=== PATIENT | female | born 1940 | race Caucasian/White ===

== ENCOUNTER 2016-08-08 06:29 | Day surgery (SDC) | payer MEDICARE, BC ==
[2016-08-05 15:48] VITALS: BMI 33.6
[~2016-08-08 06:29] MED LIST: DEXAMETHASONE SOD PHOSPHATE 10 MG/ML 1 ML VIAL IV ONE; HEPARIN SODIUM,PORCINE 5,000 UNIT/ML 1 ML VIAL SQ ONE; LACTATED RINGERS 1,000 ML IV SCH; ONDANSETRON 4 MG/2 ML VIAL IVP ONE; ceFAZolin 2 GM in SODIUM CHLORIDE 0.9% 100 ML IVPB ONE
[2016-08-08] MEDS ORDERED: LIDOCAINE 1% 20 ML VIAL (10MG/ML) FOR IV START INTRADERMA ONE (07:08)
[2016-08-08 07:20] VITALS: RESP 16; TEMP 97.6
[2016-08-08] MEDS ORDERED: PROPOFOL 10 MG/ML 20 ML VIAL IV ONE (07:53)
[2016-08-08] MEDS ORDERED: fentaNYL (PF) 50 MCG/ML 2 ML AMP ONE (07:53)
[2016-08-08] MEDS ORDERED: MIDAZOLAM 2 MG/2 ML VIAL ONE (07:53)
[2016-08-08] MEDS ORDERED: ROCURONIUM BROMIDE 10 MG/ML 10 ML VIAL IV ONE (07:53)
[2016-08-08] MEDS ORDERED: GLYCOPYRROLATE 0.2 MG/ML 2 ML VIAL ONE (07:53)
[2016-08-08] MEDS ORDERED: NEOSTIGMINE 1 MG/ML 10 ML VIAL ONE (07:53)
[2016-08-08] MEDS ORDERED: LABETALOL 5 MG/ML VIAL MDV ONE (07:53)
[2016-08-08] MEDS ORDERED: BUPIVACAIN-EPI 0.25%-1:200,000 30 ML VIAL SQ ONE ×3 (08:13)
--- NOTE | 2016-08-08 09:41 | P.OP ---
Date of Procedure: 08/08/16 Preoperative Diagnosis: Symptomatic cholelithiasis Soft tissue mass left arm Obesity BMI 33.6 Dementia Postoperative Diagnosis: Same Procedure(s) Performed: Laparoscopic cholecystectomy Excision soft tissue mass left arm Implants: NA Anesthesia: SHANNAN, local Surgeon: Aviva Lloyd Pathology: other Condition: stable Disposition: PACU Indications for Procedure: 76 years old female presents with intermittent right upper quadrant pain. Ultrasound showed gallstones. She also has soft tissue mass in the left arm. Informed consent obtained and patient elected to undergo laparoscopic cholecystectomy possible open. The risks, benefits and potential complications including bleeding, infection, inadvertent bile duct injury and possibility of converting into open were explained. Patient is also undergoing excision of the left arm soft tissue mass. Her comorbid conditions include dementia, atrial fibrillation, obesity BMI 33.6 Operative Findings: Acute on chronic cholecystitis Lipomatous mass left arm measuring 2 x 2 cm Description of Procedure: The patient was brought to the operating room and placed in supine position with both arms out. General anesthesia with endotracheal intubation was performed as per anesthesia team. Chlorhexidine was used to prep the abdomen followed by application of sterile drapes. A timeout was performed to verify correct patient and correct procedure. Patient was confirmed to receive perioperative IV antibiotics , heparin 5000 units subcutaneous injection and bilateral SCDs were placed. A 5 mm skin incision was made below the left costal margin at the anterior axillary line. A Veress needle was inserted and pneumoperitoneum was established to a pressure of 15 mmHg. A 5 mm Optiview trocar was loaded on a 5 mm 30 laparoscope and the peritoneal cavity was entered under direct vision using the Optiview technique. Additional 5 mm trocar was placed in the supraumbilical location and two 5 mm trocars along the right subcostal margin. The left 5 mm trocar was upsized to 10mm. The patient was placed in reverse Trendelenburg with right side up. The fundus of the gallbladder was grasped with an atraumatic grasper and was retracted over the dome of the liver. The infundibulum was grasped with an atraumatic grasper and retracted towards the pelvis to expose the Calot's triangle. Lateral and medial peritoneal attachment of the gallbladder bladder was dissected. Circumferential dissection was carried out around the cystic artery and the cystic duct to obtain adequate length for clip application. All the surrounding fibrofatty tissue were removed. Critical view was obtained with cystic duct and cystic artery as the only two structures entering the gallbladder. Two clips were applied on the patient's side and one on the specimen side on the cystic duct first and the cystic artery. Endoshears were used to divide the structures. The gallbladder was taken off the liver bed using a L-hook. It was placed in an endocatch specimen bag and removed through the 10mm port. The gallbladder was passed off as a specimen. The abdominal cavity was inspected. The clips on the cystic duct and cystic artery stump were intact and no bleeding noted from the liver bed. All the trocar sites were examined and no evidence of bleeding. The 10mm port site was closed with two transfascial sutures of 0 Vicryl using a MMIS device. The pneumoperitoneum was evacuated and all the trocars were removed. Local anesthetic was infiltrated along the trocar sites and incisions were closed using 4-0 Monocryl followed by application of Dermabond skin glue. The sponge, instrument and needle count were correct x2. The left arm was prepped and draped in standard sterile fashion. Local anesthetic was infiltrated. A 2 cm skin incision was made along the natural skin crease. This was deepened through the subcutaneous tissue. A well- defined 2 x 2 cm lipomatous mass was excised. The cavity was checked for hemostasis. It measured 2 x 1 x 0.2 cm It was closed in 2 layers using interrupted sutures of 3-0 Vicryl and running sutures of 4-0 Monocryl. Dermabond skin glue was applied Patient was extubated and taken to post anesthesia care unit in stable condition.
[2016-08-08] MEDS ORDERED: KETOROLAC 30 MG/ML 1 ML VIAL IVP ONE (09:45)
[2016-08-08 11:13] VITALS: BP 146/70; PULSE 60
== END 2016-08-08 13:04 | disposition home or self-care (01) ==
LOC: OR 06:29
PROVIDERS: ATTEND Surgery
DX: K80.12 Calculus of gallbladder with acute and chronic cholecystitis without obstruction (principal); D17.22 Benign lipomatous neoplasm of skin and subcutaneous tissue of left arm; F03.90 Unspecified dementia, unspecified severity, without behavioral disturbance, psychotic disturbance, mood disturbance, and anxiety; R63.4 Abnormal weight loss; E66.9 Obesity, unspecified; Z68.33 Body mass index [BMI] 33.0-33.9, adult; G47.33 Obstructive sleep apnea (adult) (pediatric); I48.91 Unspecified atrial fibrillation; I12.9 Hypertensive chronic kidney disease with stage 1 through stage 4 chronic kidney disease, or unspecified chronic kidney disease; N18.1 Chronic kidney disease, stage 1; Z88.5 Allergy status to narcotic agent; Z95.0 Presence of cardiac pacemaker; Z79.01 Long term (current) use of anticoagulants; Z79.899 Other long term (current) drug therapy
CPT/HCPCS: 47562; 26111; 93005; 88304; J2250; J1644; J1100; J2710; J0690; J2405; J3010; J1885; J2704

== ENCOUNTER 2016-10-22 13:51 | Emergency (ER) | payer MEDICARE, BC ==
--- NOTE | 2016-10-22 16:21 | ED ---
General Adult HPI - General Chief complaint: Extremity Problem,Nontraumatic Stated complaint: Left foot bruising Time Seen by Provider: 10/22/16 15:57 Source: patient, family, RN notes reviewed Mode of arrival: wheelchair Limitations: no limitations - History of Present Illness Initial comments: Patient is a pleasant 76-year-old female presenting to the emergency Department with complaints of left foot bruising. Patient woke this morning and noticed that. Patient states that has slightly improved. Patient was wearing new shoes yesterday. Patient denies any other trauma. Patient denies any pain. Patient does take Xarelto for blood thinner for atrial fibrillation. Patient does occasionally have leg cramps. - Related Data Home Medications Medication Instructions Recorded Confirmed Furosemide [Lasix] 20 mg PO DAILY PRN 06/24/14 10/22/16 Acetaminophen [Tylenol Arthritis] 650 mg PO TID PRN 07/09/16 10/22/16 Donepezil [Aricept] 5 mg PO HS 07/09/16 10/22/16 Rivaroxaban [Xarelto] 20 mg PO HS 07/09/16 10/22/16 Allergies Allergy/AdvReac Type Severity Reaction Status Date / Time hydromorphone [From Dilaudid] AdvReac Severe Confusion Verified 10/22/16 16:14 Review of Systems ROS Statement: Those systems with pertinent positive or pertinent negative responses have been documented in the HPI. ROS Other: All systems not noted in ROS Statement are negative. Constitutional: Denies: fever Eyes: Denies: eye pain ENT: Denies: ear pain Respiratory: Denies: cough Cardiovascular: Denies: chest pain, palpitations Endocrine: Denies: fatigue Gastrointestinal: Denies: abdominal pain Genitourinary: Denies: dysuria Musculoskeletal: Denies: back pain Skin: Reports: other (Ecchymosis left foot) Neurological: Denies: weakness Past Medical History Past Medical History: Atrial Fibrillation, Memory Impairment, Osteoarthritis (OA ), Renal Disease, Sleep Apnea/CPAP/BIPAP Additional Past Medical History / Comment(s): MENINGIOMA BRAIN TUMOR , NO C-PAP , KIDNEY MASS, CHRONIC KIDNEY DISEASE STAGE 3., MEDTRONIC PACEMAKER., MASS LEFT ARM. History of Any Multi-Drug Resistant Organisms: None Reported Past Surgical History: Back Surgery, Cholecystectomy, Hysterectomy, Orthopedic Surgery, Pacemaker, Tubal Ligation Additional Past Surgical History / Comment(s): BACK SURGERY X2 , FOOT SURGERY X4 , TRIGGER THUMB, ARTHROSCOPY RIGHT KNEE, BLADDER SUSPENSION. Past Anesthesia/Blood Transfusion Reactions: No Reported Reaction Type of Cardiac Device: Permanent Pacemaker Device Placement Date:: 2008 Past Psychological History: Depression Smoking Status: Never smoker Past Alcohol Use History: None Reported Past Drug Use History: None Reported - Past Family History Mother Family Medical History: No Reported History General Exam Limitations: no limitations General appearance: alert, in no apparent distress Head exam: Present: atraumatic Eye exam: Present: normal appearance Neck exam: Present: normal inspection Respiratory exam: Present: normal lung sounds bilaterally Cardiovascular Exam: Present: regular rate, normal rhythm GI/Abdominal exam: Present: soft. Absent: tenderness Extremities exam: Present: other (Left foot mild ecchymosis of the distal foot proximal to the second through fourth toe. No tenderness. Distally the extremity is neurovascular intact. Cells pedis pulse 2/4.) Neurological exam: Present: alert. Absent: motor sensory deficit Psychiatric exam: Present: normal affect, normal mood Skin exam: Present: other (Left foot ecchymosis) Course Vital Signs 10/22/16 13:54 Temperature 97.5 F L Pulse Rate 88 Respiratory 20 Rate Blood Pressure 207/109 O2 Sat by Pulse 99 Oximetry - Reevaluation(s) Reevaluation #1: 10/22/16 16:13 Patient offered blood work for evaluation of leg cramps and dehydration. Patient refuses this 10/22/16 16:47 Repeat blood pressure 197/82. Patient does have a history of some mild hypertension which she does monitor. Patient requests discharge and is agreeable to close follow-up with her doctor and director broadcast. Disposition Clinical Impression: Superficial bruising of foot, Hypertension Disposition: HOME SELF-CARE Condition: Stable Instructions: Rivaroxaban (By mouth), Ecchymosis (ED), Hypertension (ED) Additional Instructions: Please follow-up with primary care physician in the next few days for recheck. Return for increased bruising, bruising other areas, any episodes of bleeding, increased leg cramps, worsening symptoms or other concerns. Referrals: Jeferson Jaquez MD [Primary Care Provider] - 1-2 days
[2016-10-22] MEDS: FUROSEMIDE 20 MG TAB PO STA (16:28)
[2016-10-22 16:51] VITALS: BP 197/82; PULSE 78; RESP 18; TEMP 97.6
== END 2016-10-22 16:56 | disposition home or self-care (01) ==
LOC: EC 13:51
DX: S90.32XA Contusion of left foot, initial encounter (principal); I10 Essential (primary) hypertension; I48.91 Unspecified atrial fibrillation; Z79.01 Long term (current) use of anticoagulants; Z79.899 Other long term (current) drug therapy; Z88.5 Allergy status to narcotic agent; Z98.890 Other specified postprocedural states; X58.XXXA Exposure to other specified factors, initial encounter
CPT/HCPCS: 99283

== ENCOUNTER → 2017-01-29 | Outpatient (CLI) | payer MEDICARE, BC ==
--- NOTE | 2017-01-29 11:34 | CT ---
EXAMINATION TYPE: CT brain wo con DATE OF EXAM: 01/29/2017 COMPARISON: 06/24/2014 INDICATION: Headaches, history of meningioma DLP: 1121 mGycm, Automated exposure control for dose reduction was used. CONTRAST: None CT of the brain is performed utilizing 3 mm thick sections through the posterior fossa and 3 mm thick sections through the remaining calvarium. Study is performed within 24 hours of arrival to the hosp ital. No abnormal hyperdensity is present to suggest an acute intracranial hemorrhage. There is a dural based calcification measuring 1.5 x 1.6 cm. This was present previously and appears stable. No significant vasogenic edema is evident adjacent to this suspected calcified meningioma. No acute infarcts are evident. Periventricular white matter hypodensity is present, likely on the bas is of chronic white matter ischemic changes. Ventricles and sulci are appropriate for the patient age. Paranasal sinuses and mastoid air cells within the [id number] are clear. IMPRESSIONS: 1. Right vertex calcified meningioma, stable from June 2014. 2. Chronic appearing white matter ischemic type changes, stable.
== END | disposition home or self-care (01) ==
LOC: RADCTMAIN 11:10
PROVIDERS: ATTEND Family Medicine
DX: D32.0 Benign neoplasm of cerebral meninges (principal); I67.82 Cerebral ischemia
CPT/HCPCS: 70450

== ENCOUNTER → 2018-11-17 | Outpatient (CLI) | payer MEDICARE, BC ==
--- NOTE | 2018-11-17 12:58 | CT ---
EXAMINATION TYPE: CT brain wo con DATE OF EXAM: 11/17/2018 COMPARISON: 01/29/2017 HISTORY: Frontal hematoma and headache post fall yesterday. CT DLP: [address] of the brain was performed. The ventricles, basal cisterns and sulci overlying the cerebral convexities demonstrate mild enlargem ent. There is no evidence for intracranial hemorrhage or sulcal effacement. There is decreased attenuation about the periventricular white matter and deep white matter of both c erebral hemispheres, compatible with chronic small vessel ischemia. Differential diagnosis does inclu de demyelination. No mass effects are seen.No midline shift. Stable calcified high right frontal meningioma. Osseous calvarium is intact. Frontal scalp hematoma noted. If symptoms persist consider MRI. IMPRESSION: 1. Age related atrophic and chronic small vessel ischemic change without acute intracranial process s een at this time.
== END | disposition home or self-care (01) ==
LOC: RADCTMAIN 12:27
PROVIDERS: ATTEND Internal Medicine
DX: G31.1 Senile degeneration of brain, not elsewhere classified (principal); I67.82 Cerebral ischemia
CPT/HCPCS: 70450

== ENCOUNTER → 2020-01-02 | Outpatient (CLI) | payer MEDICARE, BC ==
--- NOTE | 2020-01-02 16:55 | CT ---
EXAMINATION TYPE: CT ChestAbdPelvis wo con DATE OF EXAM: 01/02/2020 INDICATION: Patient poor historian COMPARISON: 10/08/2015 CT DLP: 1129 mGycm CONTRAST: Performed without Oral Contrast. No intravenous contrast TECHNIQUE: Axial images at 5 mm thick sections. Reconstructed images in the coronal plane. Delayed images through the kidneys. FINDINGS: CT CHEST: Portion of the thyroid visualized is normal. There is some thickening in the posterior left lung base present previously. This measures 1.1 cm in transverse dimension. Atelectasis and scarring could be within the differential. No enlarged mediastinal or hilar adenopathy is evident. The ascending aorta diameter at the level of the main pulmonary artery is 4.0 cm. The main pulmonary artery diameter at the bifurcation is 3.[address] ABDOMEN: Liver: Normal Spleen: Normal Pancreas: Normal Adrenal glands: The adrenal glands are normal. Gallbladder: Surgically absent Kidneys: Previous right renal mass appears resected. Tiny hyperdense nodule extending from the infer ior pole right kidney may be present measuring 0.9 cm. Additional workup is recommended. Series 3 reva ge 95 small cystlike area appears to be just superior to this measuring 1.0 cm No hydronephrosis is p resent. No renal stones are identified. Aorta: Vascular calcification is within the aorta. Inferior vena cava: Normal. CT PELVIS: Loops of bowel within the abdomen and pelvis are normal. The study is performed without oral cont rast limiting bowel evaluation. Appendix: Not identified. No suspicious dilated tubular structures or inflammatory changes are eviden t. Urinary bladder: Decompressed with some limited evaluation. Genitourinary structures: Uterus and ovaries are not identified. There is a hyperdense area measuring 0.6 cm to the left of the vaginal vault of uncertain etiology. Series 3 image 175. Osseous structures: No suspicious lytic or sclerotic lesions. IMPRESSIONS: 1. 1 cm slightly hyperdense area extending from the inferior pole right kidney. This is away from the area of the resected mass from prior study. Additional evaluation recommended. Neoplasm is not exclu ded. 2. Stable thickening in the posterior left lung base.
== END | disposition home or self-care (01) ==
LOC: RADCTMAIN 15:48
PROVIDERS: ATTEND Family Medicine
DX: R93.421 Abnormal radiologic findings on diagnostic imaging of right kidney (principal); J98.4 Other disorders of lung
CPT/HCPCS: 71250; 74176

== ENCOUNTER → 2020-01-17 | Outpatient (CLI) | payer MEDICARE, BC ==
[2020-01-17 14:35] LABS: HCT 41.6 % (34.0-46.0); Hypochromasia Moderate; MCHC 31.3 g/dL (31.0-37.0); MCV 95.8 fL (80.0-100.0); Mean Platelet Volume 10.1; Platelet Count 146 k/uL (150-450); RBC 4.35 m/uL (3.80-5.40); RDW 15.5 % (11.5-15.5); WBC 4.5 k/uL (3.8-10.6)
[2020-01-17 14:53] LABS: Potassium 4.6 mmol/L (3.5-5.1)
== END | disposition home or self-care (01) ==
LOC: LABPAT 14:00
PROVIDERS: ATTEND Internal Medicine Interventional Cardiology
DX: Z01.818 Encounter for other preprocedural examination (principal); I10 Essential (primary) hypertension; I48.20 Chronic atrial fibrillation, unspecified; Z79.899 Other long term (current) drug therapy
CPT/HCPCS: 36415; 80051; 82565; 82947; 84520; 85027

== ENCOUNTER → 2020-01-23 | Outpatient (CLI) | payer MEDICARE, BC ==
--- NOTE | 2020-01-23 15:30 | US ---
EXAMINATION TYPE: US kidneys/renal and bladder DATE OF EXAM: 01/23/2020 COMPARISON: CT CLINICAL HISTORY: N19 Unspecified kidney failure. EXAM MEASUREMENTS: Right Kidney: 8.4 x 3.5 x 3.5 cm Left Kidney: 10.2 x 4.0 x 4.7 cm History of right renal mass resection. Right Kidney: lower pole cyst measures 0.7 x 0.8 x 0.7 cm. Left Kidney: No hydronephrosis or masses seen Bladder: not well distended Bilateral Jets seen: no There is no evidence for hydronephrosis at this point in time. No nephrolithiasis is seen. No maribell s are identified. The urinary bladder is anechoic. IMPRESSION: Simple cyst lower pole right kidney.
== END | disposition home or self-care (01) ==
LOC: RADUSWWP 14:58
PROVIDERS: ATTEND Family Medicine
DX: N28.1 Cyst of kidney, acquired (principal); N19 Unspecified kidney failure
CPT/HCPCS: 76770

== ENCOUNTER 2020-02-02 15:38 | Inpatient (IN) | payer MEDICARE, BC ==
[2020-02-02 15:58] LABS: Glucose,Whole Blood 95 mg/dL (75-99)
--- NOTE | 2020-02-02 16:23 | ED ---
Altered Mental Status HPI - General Chief Complaint: Altered Mental Status Stated Complaint: alt mental status Time Seen by Provider: 02/02/20 15:48 Source: patient, family, EMS Mode of arrival: EMS Limitations: altered mental status - History of Present Illness Initial Comments: Patient is a 79-year-old female with history of dementia presenting to the emergency department with altered mental status . is also present in the room to answer any additional questions. states the patient has been getting increasingly agitated over the last few months but no physical attacks. states the patient is refusing to use. She will only have small amounts. Patient is emotional while she was evaluated and states that "you can't tell them anything". Patient is alert to self but not time or place. also reports the patient had a syncopal episode today this initially started with a burn to left hand then went to the right hand and then she "passed out" for less than 5 minutes. Patient sees a urologist because she had a mass removed from the right kidney. states the primary care has been aware of the hematuria. - Related Data Home Medications Medication Instructions Recorded Confirmed Donepezil [Aricept] 10 mg PO DAILY 02/02/20 02/02/20 Ferrous Sulfate [Feosol] 325 mg PO HS 02/02/20 02/02/20 Mirtazapine 15 mg PO HS 02/02/20 02/02/20 Allergies Allergy/AdvReac Type Severity Reaction Status Date / Time hydromorphone [From Dilaudid] AdvReac Severe Confusion Verified 02/02/20 18:00 Review of Systems ROS Statement: Those systems with pertinent positive or pertinent negative responses have been documented in the HPI. ROS Other: All systems not noted in ROS Statement are negative. Past Medical History Past Medical History: Atrial Fibrillation, Memory Impairment, Osteoarthritis (OA), Renal Disease, Sleep Apnea/CPAP/BIPAP Additional Past Medical History / Comment(s): MENINGIOMA BRAIN TUMOR ,KIDNEY MASS, CHRONIC KIDNEY DISEASE STAGE 3., MEDTRONIC PACEMAKER., MASS LEFT ARM. History of Any Multi-Drug Resistant Organisms: None Reported Past Surgical History: Back Surgery, Cholecystectomy, Hysterectomy, Orthopedic Surgery, Pacemaker, Tubal Ligation Additional Past Surgical History / Comment(s): BACK SURGERY X2 , FOOT SURGERY X4, TRIGGER THUMB, ARTHROSCOPY RIGHT KNEE, BLADDER SUSPENSION. Past Anesthesia/Blood Transfusion Reactions: No Reported Reaction Type of Cardiac Device: Permanent Pacemaker Device Placement Date:: 2008 Past Psychological History: Depression Smoking Status: Never smoker Past Alcohol Use History: None Reported Past Drug Use History: None Reported - Past Family History Mother Family Medical History: No Reported History General Exam Limitations: altered mental status General appearance: alert, in no apparent distress Head exam: Present: atraumatic, normocephalic, normal inspection Eye exam: Present: normal appearance, PERRL, EOMI Pupils: Present: normal accommodation ENT exam: Present: normal exam, normal oropharynx, mucous membranes dry, TM's normal bilaterally, normal external ear exam Neck exam: Present: normal inspection, full ROM. Absent: tenderness Respiratory exam: Present: normal lung sounds bilaterally. Absent: respiratory distress, wheezes Cardiovascular Exam: Present: regular rate, normal rhythm, normal heart sounds GI/Abdominal exam: Present: soft. Absent: distended, tenderness, guarding Extremities exam: Present: normal inspection, full ROM. Absent: tenderness Back exam: Present: normal inspection, full ROM. Absent: tenderness Neurological exam: Present: alert Psychiatric exam: Present: normal affect, other (Patient crying, emotional.) Skin exam: Present: warm, dry, intact, normal color Course Vital Signs 02/02/20 02/02/20 02/02/20 15:53 17:42 18:52 Temperature 98 F Pulse Rate 65 62 65 Respiratory 18 18 18 Rate Blood Pressure 141/86 116/68 136/82 O2 Sat by Pulse 97 98 Oximetry 02/02/20 19:11 Temperature Pulse Rate 63 Respiratory 19 Rate Blood Pressure 123/83 O2 Sat by Pulse 93 L Oximetry Medical Decision Making - Medical Decision Making Patient is 79-year-old female with history of dementia presenting to the emergency department with a chief complaint of altered mental status. On exam patient has dry mucous membranes. She is alert to self but not time or place. CT of the brain is negative for acute processes. Chest x-ray is unremarkable. Elevated BUN/creatinine most like secondary to dehydration. UA shows +1 ketones. There is blood and red blood cells also noted. The hematuria was also known by the primary care and has been there for at least a month. Patient also appears to have a urinary tract infection with elevated white blood cells and leukocyte esterase. Negative nitrates. Patient started on Rocephin. Blood culture and lactate pending. Patient will be admitted for further medical management. Case discussed with Dr. Otoole. Data physician is - Lab Data Result diagrams: 02/02/20 17:04 02/02/20 17:04 Lab Results 02/02/20 02/02/20 02/02/20 Range/Units 15:56 17:04 17:04 WBC 6.7 (3.8-10.6) k/uL RBC 4.97 (3.80-5.40) m/uL Hgb 14.4 (11.4-16.0) gm/dL Hct 46.9 H (34.0-46.0) % MCV 94.2 (80.0-100.0) fL MCH 29.0 (25.0-35.0) pg MCHC 30.8 L (31.0-37.0) g/dL RDW 15.6 H (11.5-15.5) % Plt Count 156 (150-450) k/uL Neutrophils % 85 % Lymphocytes % 8 % Monocytes % 5 % Eosinophils % 2 % Basophils % 1 % Neutrophils # 5.6 (1.3-7.7) k/uL Lymphocytes # 0.6 L (1.0-4.8) k/uL Monocytes # 0.3 (0-1.0) k/uL Eosinophils # 0.1 (0-0.7) k/uL Basophils # 0.0 (0-0.2) k/uL PT 12.0 (9.0-12.0) sec INR 1.2 H (<1.2) APTT 23.5 (22.0-30.0) sec Sodium (137-145) mmol/L Potassium (3.5-5.1) mmol/L Chloride (98-107) mmol/L Carbon Dioxide (22-30) mmol/L Anion Gap mmol/L BUN (7-17) mg/dL Creatinine (0.52-1.04) mg/dL Est GFR (CKD-EPI)AfAm (>60 ml/min/1.73 sqM) Est GFR (CKD-EPI)NonAf (>60 ml/min/1.73 sqM) Glucose (74-99) mg/dL POC Glucose (mg/dL) 95 (75-99) mg/dL POC Glu Liquefaction Supervisor ID Linda Shetty Calcium (8.4-10.2) mg/dL Total Bilirubin (0.2-1.3) mg/dL AST (14-36) U/L ALT (4-34) U/L Alkaline Phosphatase (38-126) U/L Troponin I (0.000-0.034) ng/mL Total Protein (6.3-8.2) g/dL Albumin (3.5-5.0) g/dL Urine Color Urine Appearance (Clear) Urine pH (5.0-8.0) Ur Specific [place] (1.001-1.035) Urine Protein (Negative) Urine Glucose (UA) (Negative) Urine Ketones (Negative) Urine Blood (Negative) Urine Nitrite (Negative) Urine Bilirubin (Negative) Urine Urobilinogen (<2.0) mg/dL Ur Leukocyte Esterase (Negative) Urine RBC (0-5) /hpf Urine WBC (0-5) /hpf Urine WBC Clumps (None) /hpf Ur Squamous Epith Cells (0-4) /hpf Amorphous Sediment (None) /hpf Urine Bacteria (None) /hpf Hyaline Casts (0-2) /lpf Urine Mucus (None) /hpf Urine Opiates Screen (NotDetected) Ur Oxycodone Screen (NotDetected) Urine Methadone Screen (NotDetected) Ur Propoxyphene Screen (NotDetected) Ur Barbiturates Screen (NotDetected) U Tricyclic Antidepress (NotDetected) Ur Phencyclidine Scrn (NotDetected) Ur Amphetamines Screen (NotDetected) U Methamphetamines Scrn (NotDetected) U Benzodiazepines Scrn (NotDetected) Urine Cocaine Screen (NotDetected) U Marijuana (THC) Screen (NotDetected) 02/02/20 02/02/20 02/02/20 Range/Units 17:04 17:04 18:31 WBC (3.8-10.6) k/uL RBC (3.80-5.40) m/uL Hgb (11.4-16.0) gm/dL Hct (34.0-46.0) % MCV (80.0-100.0) fL MCH (25.0-35.0) pg MCHC (31.0-37.0) g/dL RDW (11.5-15.5) % Plt Count (150-450) k/uL Neutrophils % % Lymphocytes % % Monocytes % % Eosinophils % % Basophils % % Neutrophils # (1.3-7.7) k/uL Lymphocytes # (1.0-4.8) k/uL Monocytes # (0-1.0) k/uL Eosinophils # (0-0.7) k/uL Basophils # (0-0.2) k/uL PT (9.0-12.0) sec INR (<1.2) APTT (22.0-30.0) sec Sodium 138 (137-145) mmol/L Potassium 4.0 (3.5-5.1) mmol/L Chloride 105 (98-107) mmol/L Carbon Dioxide 24 (22-30) mmol/L Anion Gap 9 mmol/L BUN 25 H (7-17) mg/dL Creatinine 1.61 H (0.52-1.04) mg/dL Est GFR (CKD-EPI)AfAm 35 (>60 ml/min/1.73 sqM) Est GFR (CKD-EPI)NonAf 30 (>60 ml/min/1.73 sqM) Glucose 136 H (74-99) mg/dL POC Glucose (mg/dL) (75-99) mg/dL POC Glu Liquefaction Supervisor ID Calcium 9.5 (8.4-10.2) mg/dL Total Bilirubin 1.4 H (0.2-1.3) mg/dL AST 41 H (14-36) U/L ALT 16 (4-34) U/L Alkaline Phosphatase 136 H (38-126) U/L Troponin I 0.013 (0.000-0.034) ng/mL Total Protein 6.9 (6.3-8.2) g/dL Albumin 4.0 (3.5-5.0) g/dL Urine Color Yellow Urine Appearance Turbid H (Clear) Urine pH 5.5 (5.0-8.0) Ur Specific [place] 1.022 (1.001-1.035) Urine Protein 1+ H (Negative) Urine Glucose (UA) Negative (Negative) Urine Ketones 1+ H (Negative) Urine Blood Moderate H (Negative) Urine Nitrite Negative (Negative) Urine Bilirubin 1+ H (Negative) Urine Urobilinogen 3.0 (<2.0) mg/dL Ur Leukocyte Esterase Large H (Negative) Urine RBC 86 H (0-5) /hpf Urine WBC 48 H (0-5) /hpf Urine WBC Clumps Many H (None) /hpf Ur Squamous Epith Cells 8 H (0-4) /hpf Amorphous Sediment Rare H (None) /hpf Urine Bacteria Many H (None) /hpf Hyaline Casts 34 H (0-2) /lpf Urine Mucus Many H (None) /hpf Urine Opiates Screen Not Detected (NotDetected) Ur Oxycodone Screen Not Detected (NotDetected) Urine Methadone Screen Not Detected (NotDetected) Ur Propoxyphene Screen Not Detected (NotDetected) Ur Barbiturates Screen Not Detected (NotDetected) U Tricyclic Antidepress Not Detected (NotDetected) Ur Phencyclidine Scrn Not Detected (NotDetected) Ur Amphetamines Screen Not Detected (NotDetected) U Methamphetamines Scrn Not Detected (NotDetected) U Benzodiazepines Scrn Not Detected (NotDetected) Urine Cocaine Screen Not Detected (NotDetected) U Marijuana (THC) Screen Not Detected (NotDetected) Disposition Clinical Impression: Urinary tract infection, Syncope Disposition: ADMITTED IP TO THIS HOSP Condition: Fair Instructions (If sedation given, give patient instructions): Altered Mental Status (ED) Additional Instructions: Patient will be admitted Is patient prescribed a controlled substance at d/c from ED?: No Referrals: Jeferson Jaquez MD [Primary Care Provider] - 1-2 days Time of Disposition: 20:02
--- NOTE | 2020-02-02 17:21 | CT ---
EXAMINATION TYPE: CT brain cspine wo con DATE OF EXAM: 02/02/2020 COMPARISON: 11/17/2018 HISTORY: AMS. Pt reportedly passed out. CT DLP: 1362.7 mGycm Automated exposure control for dose reduction was used. TECHNIQUE: CT scan of the head and cervical spine are performed without contrast. FINDINGS: There is no acute intracranial hemorrhage, mass, mass effect effect, or midline shift roc ntified. No definite new attenuation defect. The diffuse bilateral centrum semiovale and lemus radia ta nonspecific low attenuation is similar in appearance when compared to the prior study. The previou sly seen 1.5 cm diameter calcified meningioma high over the right convexity is unchanged. The ventric les and sulci are within normal limits in size. The globes are intact and the visualized sinuses are clear. Cervical spine is visualized in its entirety from C1 through upper thoracic levels and demonstrates s atisfactory alignment without evidence of acute fracture or dislocation. Prevertebral soft tissue ap pears within normal limits. The C1-C2 articulation is unremarkable. IMPRESSION: 1. No acute fracture or dislocation evident in the cervical spine. 2. No skull fracture or definite acute intracranial process.
[2020-02-02 17:28] LABS: Basophils % (A) 1 %; Eosinophils # (A) 0.1 k/uL (0-0.7); Eosinophils % (A) 2 %; HCT 46.9 % (34.0-46.0); HGB 14.4 gm/dL (11.4-16.0); Lymphocytes # (A) 0.6 k/uL (1.0-4.8); Lymphocytes % (A) 8 %; MCHC 30.8 g/dL (31.0-37.0); MCV 94.2 fL (80.0-100.0); Mean Platelet Volume 10.4; Monocytes # (A) 0.3 k/uL (0-1.0); Monocytes % (A) 5 %; Neutrophils # (A) 5.6 k/uL (1.3-7.7); Neutrophils % (A) 85 %; Platelet Count 156 k/uL (150-450); RBC 4.97 m/uL (3.80-5.40); RDW 15.6 % (11.5-15.5); WBC 6.7 k/uL (3.8-10.6)
--- NOTE | 2020-02-02 17:29 | XR ---
EXAMINATION: XR chest 2V DATE AND TIME: 02/02/2020 5:05 PM CLINICAL INDICATION: PHH; altered mental status TECHNIQUE: Departmental protocol COMPARISON: 06/24/2014 FINDINGS: Cardiac pacemaker and EKG leads noted. The lungs are clear. The pleural spaces are negative. The cardiac silhouette is mild-moderately enlarged, unchanged. Tortuous thoracic aorta redemonstrated , similar in appearance. The skeletal structures and soft tissues are negative for acute findings. IMPRESSION: No definite acute radiographic process.
[2020-02-02 17:35] LABS: Calcium 9.5 mg/dL (8.4-10.2); Total Bilirubin 1.4 mg/dL (0.2-1.3); Total Protein 6.9 g/dL (6.3-8.2)
[2020-02-02 17:40] LABS: INR 1.2 (<1.2); Partial Thromboplastin Time 23.5 sec (22.0-30.0)
[2020-02-02] MEDS ORDERED: SODIUM CHLORIDE 0.9% 1,000 ML IV STA (18:25)
[2020-02-02 19:01] LABS: Amorphous Sediment,Urine Rare /hpf; Appearance,Urine Turbid (Clear); Bacteria,Urine Many /hpf; Bilirubin,Urine 1+ (Negative); Blood,Urine Moderate (Negative); Color,Urine Yellow; Glucose,Urine (UA) Negative (Negative); Hyaline Casts,Urine 34 /lpf (0-2); Ketones,Urine 1+ (Negative); Leukocyte Esterase,Urine Large (Negative); Mucus,Urine Many /hpf; Nitrite,Urine Negative (Negative); PH, Urine 5.5 (5.0-8.0); Protein,Urine 1+ (Negative); RBC,Urine 86 /hpf (0-5); Specific Gravity,Urine 1.022 (1.001-1.035); Squamous Epithelial Cell,Urine 8 /hpf (0-4); WBC,Urine 48 /hpf (0-5)
[2020-02-02 19:14] LABS: Amphetamine Screen,Urine Not Detected (NotDetected); Barbiturate Screen,Urine Not Detected (NotDetected); Benzodiazepines Screen,Urine Not Detected (NotDetected); Cocaine Screen,Urine Not Detected (NotDetected); Methadone Screen, Urine Not Detected (NotDetected); Opiate Screen,Urine Not Detected (NotDetected); Oxycodone Screen, Urine Not Detected (NotDetected); Phencyclidine Screen,Urine Not Detected (NotDetected); Tricyclic Antidepressant,Urine Not Detected (NotDetected); Urn Cannabinoid Scrn Not Detected (NotDetected)
[2020-02-02] MEDS ORDERED: cefTRIAXone IN SWFI 1,000 MG/10 ML SYRINGE IVP STA (19:48)
[2020-02-02] MEDS ORDERED: ONDANSETRON 4 MG/2 ML VIAL IVP PRN (19:50)
[2020-02-02] MEDS ORDERED: LORazepam 2 MG/ML INJ IV PRN (19:50)
[2020-02-02] MEDS ORDERED: NALOXONE 0.4 MG/ML 1 ML VIAL IV PRN (19:50)
[2020-02-02] MEDS ORDERED: ACETAMINOPHEN TAB 325 MG TAB PO PRN (19:50)
[2020-02-02] MEDS: SODIUM CHLORIDE 0.9% 1,000 ML IV SCH (21:18)
[2020-02-02] MEDS: HEPARIN SODIUM,PORCINE 5,000 UNIT/ML 1 ML VIAL SQ SCH (23:55)
--- NOTE | 2020-02-03 01:37 | P.HPIM ---
History of Present Illness H&P Date: 02/02/20 Chief Complaint: syncope 79 year old female with history of dementia , afib (xarelto on hold) patient comes in with her family , after experiencing a syncopal episode. she wa s at her baseline of health, and just after lunch while she was going to her room using her walker, she had a syncopal episode. no injuries. as her son was preparing the bed, she passed our on her walker seat. she was not responding but breathing normally for less than a minute and then regained consciousness, she does not recall these events. she denies any injuries or similar episodes, no changes in her meds. denies any associated chest pain , SOB, sweating, dizziness, lightheadedness, nausea or vomiting. she currently feels fine. she also reports dark urine and frequent urination that has going on for about a month. again no fever, no back pain no nausea or vomiting. she reports upper abd discomfort that comes and goes, usually worse with big meals. therefore, she had poor PO intake for the past few weeks. she is not aware of any blood BM, keith , or pale stool in the ED, she was found to have RENE, and UTI. admitted for further treatment and monitoring Review of Systems Pertinent positives as noted in HPI. All other systems were reviewed and are negative Past Medical History Past Medical History: Atrial Fibrillation, Memory Impairment, Osteoarthritis (OA), Renal Disease, Sleep Apnea/CPAP/BIPAP Additional Past Medical History / Comment(s): MENINGIOMA BRAIN TUMOR ,KIDNEY MASS, CHRONIC KIDNEY DISEASE STAGE 3., [employer] PACEMAKER., MASS LEFT ARM. History of Any Multi-Drug Resistant Organisms: None Reported Past Surgical History: Back Surgery, Cholecystectomy, Hysterectomy, Orthopedic Surgery, Pacemaker, Tubal Ligation Additional Past Surgical History / Comment(s): BACK SURGERY X2 , FOOT SURGERY X4, TRIGGER THUMB, ARTHROSCOPY RIGHT KNEE, BLADDER SUSPENSION. Past Anesthesia/Blood Transfusion Reactions: No Reported Reaction Type of Cardiac Device: Permanent Pacemaker Device Placement Date:: 01/23/2020 Past Psychological History: Depression Smoking Status: Never smoker Past Alcohol Use History: None Reported Past Drug Use History: None Reported - Past Family History Mother Family Medical History: No Reported History Medications and Allergies Home Medications Medication Instructions Recorded Confirmed Type Donepezil [Aricept] 10 mg PO DAILY 02/02/20 02/02/20 History Ferrous Sulfate [Feosol] 325 mg PO HS 02/02/20 02/02/20 History Mirtazapine 15 mg PO HS 02/02/20 02/02/20 History Allergies Allergy/AdvReac Type Severity Reaction Status Date / Time hydromorphone [From Dilaudid] AdvReac Severe Confusion Verified 02/02/20 18:00 Physical Exam Vitals: Vital Signs Temp Pulse Resp BP Pulse Ox 02/02/20 21:20 98.9 F 60 17 135/74 96 02/02/20 19:11 63 19 123/83 93 L 02/02/20 18:52 65 18 136/82 98 02/02/20 17:42 62 18 116/68 97 02/02/20 15:53 98 F 65 18 141/86 Intake and Output 02/02/20 02/02/20 02/02/20 06:59 14:59 22:59 Other: Weight 65.5 kg Constitutional: No acute distress, conversant, pleasant Eyes: Anicteric sclerae, moist conjunctiva, Pupils equal round reactive to light ENMT: NC/AT Oropharynx clear, no erythema, or exudates Neck: Supple, FROM, no masses, or JVD No carotid bruits No thyromegaly Lungs: Clear to auscultation Clear to percussion Normal respiratory effort, no accessory muscle use Cardiovascular: Heart regular in rate and rhythm, No murmurs, gallops, or rubs No peripheral edema Abdominal: Soft Nontender, no guarding, rebound or rigidity Abdomen moving with respiration Normoactive bowel sounds No hepatomegaly, No splenomegaly No palpable mass No abdominal wall hernia noted Skin: Normal temperature, tone, texture, turgor No induration No subcutaneous nodules No rash, lesions No ulcers Extremities: No digital cyanosis No clubbing Pedal pulses intact and symmetrical Radial pulses intact and symmetrical No calf tenderness Psychiatric: Alert and oriented to person, only Appropriate affect poor judgement Neuro Muscles Strength 4/5 in all 4 extremities Sensation to light touch grossly present throughout Cranial nerves II-XII grossly intact No focal sensory deficits Lymphatics: no palpable cervical or supraclavicular , or inguinal lymph nodes Results CBC & Chem 7: 02/02/20 17:04 02/02/20 17:04 Labs: Abnormal Lab Results - Last 24 Hours (Table) 02/02/20 02/02/20 02/02/20 Range/Units 17:04 17:04 17:04 Hct 46.9 H (34.0-46.0) % MCHC 30.8 L (31.0-37.0) g/dL RDW 15.6 H (11.5-15.5) % Lymphocytes # 0.6 L (1.0-4.8) k/uL INR 1.2 H (<1.2) BUN 25 H (7-17) mg/dL Creatinine 1.61 H (0.52-1.04) mg/dL Glucose 136 H (74-99) mg/dL Total Bilirubin 1.4 H (0.2-1.3) mg/dL AST 41 H (14-36) U/L Alkaline Phosphatase 136 H (38-126) U/L Urine Appearance (Clear) Urine Protein (Negative) Urine Ketones (Negative) Urine Blood (Negative) Urine Bilirubin (Negative) Ur Leukocyte Esterase (Negative) Urine RBC (0-5) /hpf Urine WBC (0-5) /hpf Urine WBC Clumps (None) /hpf Ur Squamous Epith Cells (0-4) /hpf Amorphous Sediment (None) /hpf Urine Bacteria (None) /hpf Hyaline Casts (0-2) /lpf Urine Mucus (None) /hpf 02/02/20 Range/Units 18:31 Hct (34.0-46.0) % MCHC (31.0-37.0) g/dL RDW (11.5-15.5) % Lymphocytes # (1.0-4.8) k/uL INR (<1.2) BUN (7-17) mg/dL Creatinine (0.52-1.04) mg/dL Glucose (74-99) mg/dL Total Bilirubin (0.2-1.3) mg/dL AST (14-36) U/L Alkaline Phosphatase (38-126) U/L Urine Appearance Turbid H (Clear) Urine Protein 1+ H (Negative) Urine Ketones 1+ H (Negative) Urine Blood Moderate H (Negative) Urine Bilirubin 1+ H (Negative) Ur Leukocyte Esterase Large H (Negative) Urine RBC 86 H (0-5) /hpf Urine WBC 48 H (0-5) /hpf Urine WBC Clumps Many H (None) /hpf Ur Squamous Epith Cells 8 H (0-4) /hpf Amorphous Sediment Rare H (None) /hpf Urine Bacteria Many H (None) /hpf Hyaline Casts 34 H (0-2) /lpf Urine Mucus Many H (None) /hpf Microbiology - Last 24 Hours (Table) 02/02/20 18:31 Urine Culture - Preliminary Urine,Voided Thrombosis Risk Factor Assmnt - Choose All That Apply Each Risk Factor Represents 3 Points: Age 75 years or older Thrombosis Risk Factor Assessment Total Risk Factor Score: 3 Thrombosis Risk Factor Assessment Level: Moderate Risk Assessment and Plan Assessment: syncope , most likely 2/2 dehydration with vasovagal attack, rule out cardiac causes UTI RENE, prerenal ATN elevated liver enzymes, rule out gall stones dementia afib , xarelto on hold per her PCP for bleeding workup, patient hemoglobin is wnl, however patient dehydrated plan IVF hydration follow up cultures monitor urine output IV rocephine check orthostatic vitals youth nutritional monitor PPI liver US follow up labs in AM CODE STATUS:no code DVT prophylaxis: heparn sc tid Discussed with: Patient, ER, RN Anticipated length of stay > than [address]: home A total of 75 minutes was spent on the care of this complex patient more than 50% of the time was spent in counseling and care coordination.
--- NOTE | 2020-02-03 02:07 | P.HPADDEND ---
H&P Addendum H&P Addendum Date: 02/02/20 Advanced Care Planning Active diagnoses: syncope, UTI, RENE Background: The patient was admitted for treatment of syncope, dehydration , rene , UTI Discussion: Person(s) present and participating in discussion: The patient, myself, and patient son Summary: The patient does not want CPR or Intubation. She would allow for BIPAP if she needed it. Agreed for treatment with IV fluids, antibiotics, steroids, and nebs. She agrees to all care that would maximize comfort. In the event that she was not able to make her own medical decisions she has elected her Son. to make decisions. patient is hoping that she can go home as soon as possible , she does not want to consider placement at [facility]. Time spent: Total time spent face to face in education and discussion directly related to advanced care plannin minutes
--- NOTE | 2020-02-03 08:32 | US ---
EXAMINATION TYPE: US liver DATE OF EXAM: 02/03/2020 COMPARISON: CT abdomen pelvis 01/02/2020 CLINICAL HISTORY: Concern for gall stones, or blockage to CBD. Patient has dementia and unable to ans wer questions properly, no pain as of now. History of cholecystectomy. EXAM MEASUREMENTS: Liver Length: 14.8cm Gallbladder Wall: Surgically absent CBD: 0.5cm Right Kidney: 8.2 x 4.0 x 3.4cm patient with dementia, could not follow instructions, bowel gas limits exam. Pancreas: Not visualized. Liver: Left lobe not visualized. Intercostal imaging of the right lobe was limited however visualize d portions are normal. Gallbladder: Surgically absent. Telemedicine Physician reports no evidence of sonographic Saldivar sign. CBD: Normal. No extrahepatic or visualized intrahepatic biliary ductal dilatation. Right Kidney: Partially obscured, with no hydronephrosis. IMPRESSION: 1. Limited examination due to overlying bowel gas. 2. No extrahepatic or intrahepatic biliary ductal dilatation seen status post cholecystectomy.
[2020-02-03 08:37] LABS: Basophils % (A) 1 %; Eosinophils # (A) 0.1 k/uL (0-0.7); Eosinophils % (A) 3 %; HCT 41.2 % (34.0-46.0); HGB 12.7 gm/dL (11.4-16.0); Lymphocytes # (A) 0.9 k/uL (1.0-4.8); Lymphocytes % (A) 25 %; MCH 28.9 pg (25.0-35.0); MCHC 30.7 g/dL (31.0-37.0); MCV 94.2 fL (80.0-100.0); Mean Platelet Volume 10.1; Monocytes # (A) 0.2 k/uL (0-1.0); Monocytes % (A) 6 %; Neutrophils # (A) 2.2 k/uL (1.3-7.7); Neutrophils % (A) 63 %; Platelet Count 125 k/uL (150-450); RBC 4.38 m/uL (3.80-5.40); RDW 15.7 % (11.5-15.5); WBC 3.4 k/uL (3.8-10.6)
[2020-02-03] MEDS: PANTOPRAZOLE 40 MG TABLET PO SCH (08:45)
[2020-02-03] MEDS: HEPARIN SODIUM,PORCINE 5,000 UNIT/ML 1 ML VIAL SQ SCH (08:49)
[2020-02-03] MEDS ORDERED: DONEPEZIL 10 MG TAB PO SCH (09:00)
[2020-02-03 09:22] LABS: Albumin 3.4 g/dL (3.5-5.0); Potassium 4.1 mmol/L (3.5-5.1); Total Bilirubin 1.1 mg/dL (0.2-1.3); Total Protein 6.1 g/dL (6.3-8.2)
--- NOTE | 2020-02-03 14:38 | P.PN ---
Subjective Progress Note Date: 02/03/20 (delayed charting seen at 1030) Principal diagnosis: syncope Patient is a 79-year-old female with a history of A. fib with anticoagulation on hold secondary to recent concerns for bleeding, chronic kidney disease stage III, and arrhythmia status post permanent pacemaker implantation with recent significant changes in behavior who presented to the hospital with a syncopal episode. In the ER she underwent an extensive evaluation. She was found to be dehydrated and have possible urinary tract infection. She was also found to have orthostatic vital signs. She was started on IV fluids and antibiotics. Arrangements were made for admission. After discussion with her son and her she has had significant change in her memory. She is now having hallucinations at night, poor oral intake, poor personal hygiene. She's been refusing medications and confused. Things have gotten much worse over the past 4-6 weeks at home. Patient seen and examined at bedside with present. She is unable to adequately participate medical history gathering she is confused, off topic, references people that aren't actually standing in the room. She becomes frequ ently upset and having outbursts and accusing her of lying. She also denies that he is her . She is asking for her son. She is not aware that one of them lives in [place], though she was aware of this in the past. Per she has had a progressive decline over the last 4-6 weeks. It initially started with decreased oral intake. Refusal to take medications. That over the last 2 weeks she has been sleeping almost 24/ 7. She has become very difficult to handle at home. They brought her in yesterday she had 2 syncopal event at home. reports that she was post follow-up with Dr. Gudino. She has recently had a workup with Dr. Spaulding and he believes an echocardiogram. She also recently had her pacemaker interrogated.We discussed that she is showing signs of likely what is progressive dementia with behavioral disturbances. I also called son Dylan over the phone. Plan will be to increase her Remeron, start as needed Ativan, home health care. As well as treatment for urinary tract infection. Objective - Vital Signs Vital signs: Vital Signs Temp 98.4 F 02/03/20 07:37 Pulse 61 02/03/20 07:55 Resp 20 02/03/20 07:55 BP 168/97 02/03/20 07:37 Pulse Ox 99 02/03/20 07:37 Intake & Output 02/02/20 02/03/20 02/03/20 18:59 06:59 18:59 Intake Total 1000 540 Balance 1000 540 Weight 72.575 kg 65.5 kg Intake: Intake, IV Titration 1000 Amount Sodium Chloride 0.9% 1, 1000 000 ml @ 999 mls/hr IV . Q1H1M STA Rx#:[id number] Oral 540 Other: # Voids 2 2 # Bowel Movements 1 - Exam General: non toxic, no distress, appears at stated age Derm: warm, dry Head: atraumatic, normocephalic, symmetric Eyes: EOMI, no lid lag, anicteric sclera Mouth: no lip lesion, mucus membranes moist Cardiovascular: S1S2 reg, no murmur, positive posterior tibial pulse bilateral, Lungs: CTA bilateral, no rhonchi, no rales , no accessory muscle use Abdominal: soft, nontender to palpation, no guarding, no appreciable organomegaly Ext: no gross muscle atrophy, no edema, no contractures Neuro: CN II-XI grossly intact, no focal neuro deficits Psych: Alert, not oriented, angry and fearful - Labs CBC & Chem 7: 02/03/20 07:48 02/03/20 07:48 Labs: Abnormal Lab Results - Last 24 Hours (Table) 02/02/20 02/02/20 02/02/20 Range/Units 17:04 17:04 17:04 WBC (3.8-10.6) k/uL Hct 46.9 H (34.0-46.0) % MCHC 30.8 L (31.0-37.0) g/dL RDW 15.6 H (11.5-15.5) % Plt Count (150-450) k/uL Lymphocytes # 0.6 L (1.0-4.8) k/uL INR 1.2 H (<1.2) BUN 25 H (7-17) mg/dL Creatinine 1.61 H (0.52-1.04) mg/dL Glucose 136 H (74-99) mg/dL Total Bilirubin 1.4 H (0.2-1.3) mg/dL AST 41 H (14-36) U/L Alkaline Phosphatase 136 H (38-126) U/L Total Protein (6.3-8.2) g/dL Albumin (3.5-5.0) g/dL Urine Appearance (Clear) Urine Protein (Negative) Urine Ketones (Negative) Urine Blood (Negative) Urine Bilirubin (Negative) Ur Leukocyte Esterase (Negative) Urine RBC (0-5) /hpf Urine WBC (0-5) /hpf Urine WBC Clumps (None) /hpf Ur Squamous Epith Cells (0-4) /hpf Amorphous Sediment (None) /hpf Urine Bacteria (None) /hpf Hyaline Casts (0-2) /lpf Urine Mucus (None) /hpf 02/02/20 02/03/20 02/03/20 Range/Units 18:31 07:48 07:48 WBC 3.4 L (3.8-10.6) k/uL Hct (34.0-46.0) % MCHC 30.7 L (31.0-37.0) g/dL RDW 15.7 H (11.5-15.5) % Plt Count 125 L (150-450) k/uL Lymphocytes # 0.9 L (1.0-4.8) k/uL INR (<1.2) BUN 22 H (7-17) mg/dL Creatinine 1.39 H (0.52-1.04) mg/dL Glucose 73 L (74-99) mg/dL Total Bilirubin (0.2-1.3) mg/dL AST (14-36) U/L Alkaline Phosphatase (38-126) U/L Total Protein 6.1 L (6.3-8.2) g/dL Albumin 3.4 L (3.5-5.0) g/dL Urine Appearance Turbid H (Clear) Urine Protein 1+ H (Negative) Urine Ketones 1+ H (Negative) Urine Blood Moderate H (Negative) Urine Bilirubin 1+ H (Negative) Ur Leukocyte Esterase Large H (Negative) Urine RBC 86 H (0-5) /hpf Urine WBC 48 H (0-5) /hpf Urine WBC Clumps Many H (None) /hpf Ur Squamous Epith Cells 8 H (0-4) /hpf Amorphous Sediment Rare H (None) /hpf Urine Bacteria Many H (None) /hpf Hyaline Casts 34 H (0-2) /lpf Urine Mucus Many H (None) /hpf Microbiology - Last 24 Hours (Table) 02/02/20 18:31 Urine Culture - Preliminary Urine,Voided Assessment and Plan Assessment: RENE on CKD III due to dehydration, baseline Cr 1.4, renal mass - IVF fluids - avoid nephrotoxic agents - Nephrology consult re small renal mass orthostatic hypotension - recheck orthostatic vitals continue IVF Syncope - obtain records from Dr. Taylor office - suspect due to dehydration - pacemaker interrogation - echo if not done in office Possible UTI - rocephin - await cultures Thrombocytopenia - undetermined cause will need to Dementia with behavioral disturbances - limit number of medications to take daily as difficulty trying to get her to take pills - Increased remeron - Ativan for break through outbursts - Home health care, DNR and goal is to keep patient in her own home Elevated liver enzymes, improved Not safe to discharge with continued hallucinations, + orthostatics and syncope yesterday, will need to be inpatient from admission as clear indicated by initial H and P. DVT prophylaxis: SCDs Discussed with: patient, , son, nursing Anticipated discharge: 1-[address]: home with home health A total of 55 minutes was spent on the care of this complex patient more than 50% of the time was spent in counseling and care coordination.
[2020-02-03] MEDS ORDERED: MIRTAZAPINE 15 MG TAB PO SCH ×2 (21:00)
[2020-02-04] MEDS: SODIUM CHLORIDE 0.9% 1,000 ML IV SCH ×3 (02:50→09:36)
[2020-02-04 08:40] LABS: Basophils % (A) 1 %; Eosinophils # (A) 0.2 k/uL (0-0.7); Eosinophils % (A) 5 %; HCT 41.2 % (34.0-46.0); HGB 12.8 gm/dL (11.4-16.0); Lymphocytes # (A) 0.7 k/uL (1.0-4.8); Lymphocytes % (A) 24 %; MCH 29.4 pg (25.0-35.0); MCHC 31.1 g/dL (31.0-37.0); MCV 94.7 fL (80.0-100.0); Mean Platelet Volume 10.1; Monocytes # (A) 0.2 k/uL (0-1.0); Monocytes % (A) 7 %; Neutrophils # (A) 1.8 k/uL (1.3-7.7); Neutrophils % (A) 62 %; Platelet Count 115 k/uL (150-450); RBC 4.35 m/uL (3.80-5.40); RDW 15.7 % (11.5-15.5)
[2020-02-04 08:53] LABS: Calcium 9.1 mg/dL (8.4-10.2)
[2020-02-04] MEDS: PANTOPRAZOLE 40 MG TABLET PO SCH (09:31)
--- NOTE | 2020-02-04 13:59 | CONS ---
CONSULTATION REASON FOR CONSULT: Renal failure. HISTORY OF PRESENT ILLNESS: The patient is a 79-year-old female who was admitted to the hospital on February 01 with mental status changes. The patient does have an underlying history of dementia. She has been maintained on IV fluids and overall she has improved. Serum creatinine was 1.6 on admission. It is down to 1.2 now. PAST MEDICAL HISTORY: Hypertension, atrial fibrillation, dementia, osteoarthritis, chronic renal disease stage 3, baseline creatinine about 1.0-1.1 mg/dL. PAST SURGICAL HISTORY: Cholecystectomy, hysterectomy, tubal ligation, back surgery, foot surgery, arthroscopic right knee, bladder suspension, pacemaker placement. SOCIAL HISTORY: Negative for smoking, drug abuse, alcohol abuse. MEDICATIONS: Medications at home prior to admission: Aricept, iron, mirtazapine. ALLERGIES: DILAUDID. REVIEW OF SYSTEMS: As per HPI. Other systems negative. PHYSICAL EXAMINATION: Patient is comfortable, awake, has difficulty in finding words while talking. This is her baseline according to her . Blood pressure was 137/87, heart rate 62 per minute, she is afebrile. Examination of the heart S1, S2. Examination of the lungs, bilateral breath sounds are heard. Abdomen is soft, nontender. Examination of lower extremities shows no significant edema. HEALTH TECHNICIAN exam shows patient moving all 4 extremities. LAB: Show sodium 137, potassium 4.0, chloride 109, BUN 17, creatinine 1.2, hemoglobin 12.8. ASSESSMENT: 1. Acute kidney injury, prerenal, currently improved. 2. Urinary tract infection. Urine culture grew mostly genital raffi. The patient is status post antibiotics. 3. Volume depletion, currently improved with normal saline. 4. Underlying dementia. Mentation is currently at baseline. PLAN: Patient can be discharged from nephrology standpoint. She needs to maintain adequate hydration post discharge. There is evidence of orthostatic hypotension and currently patient is not on any antihypertensive medications. She can use support stockings. Thank you for this consultation. Will continue to follow the patient with you during her hospitalization. MMODL / IJN: [id number] /
[2020-02-04 17:05] VITALS: BP 177/108; PULSE 71; RESP 18; TEMP 98.2
--- NOTE | 2020-02-04 17:37 | P.DS ---
Providers Date of admission: 02/02/20 20:19 Expected date of discharge: 02/04/20 Attending physician: Leona Wild MD Consults: 02/03/20 10:23 Consult Physician Routine Consulting Provider: Gaby Gudino Consult Reason/Comments: Kidney mass from outpatient CT DECEMBER 2019 Do you want consulting provider notified?: Yes Primary care physician: Jeferson Jaquez Hospital Course: Discharge Diagnosis: Syncope due to orthostatic hypotension Dehydration Acute kidney injury on CKD III Dementia with behavioral disturbance Probable UTI Thrombocytopenia Transaminitis Hospital Course: Patient is a 79-year-old female with a history of A. fib with anticoagulation on hold secondary to recent concerns for bleeding, chronic kidney disease stage III, and arrhythmia status post permanent pacemaker implantation with recent significant changes in behavior who presented to the hospital with a syncopal episode. In the ER she underwent an extensive evaluation. She was found to be dehydrated and have possible urinary tract infection. She was also found to have orthostatic vital signs. She was started on IV fluids and antibiotics. Arrangements were made for admission. After discussion with her son and her she has had significant change in her memory. She is now having hallucinations at night, poor oral intake, poor personal hygiene. She's been refusing medications and confused. Things have gotten much worse over the past 4-6 weeks at home. Records obtained form Dr. Spaulding office which showed echo without aortic stenosis but severe TR with pulm HTN, Pacer interrogated and appears to be functioning normally. Seen by Dr. Gudino and plan is for out patient follow-up and cleared for discharge. Patient given compression stocking and completed IVF and orthostatic hypotension resolved. Her urine culture came back for urognetial raffi but I elected to treat her for UTI due to symptoms. Her Remeron was increased from 15 to 22.5mg and she was able to sleep the entire night for the first time in several weeks. After discussion with her son Dylan we elected to stop the aricept as it is likely contributing to her orthostatic hypotension and can also have side effects of decreased appetite. They did agree to home health and will have nursing, pt/ot, and social work. I did encourage the to express his concerns and be up from with Dr. Jaquez during visits as to what is happening at home. It appears that they have been concealing some of her behaviors. He also feels the family does not understand her high likelihood of dementia progressing with behavioral disturbances. Patient seen and examined at bedside. She denies any pain. She is mumbling incoherently. She starts sentences but does not finish them. Vital signs reviewed and stable. General: non toxic, no distress, appears at stated age Derm: warm, dry Head: atraumatic, normocephalic, symmetric Eyes: EOMI, no lid lag, anicteric sclera Mouth: no lip lesion, mucus membranes moist Cardiovascular: S1S2 reg, no murmur, positive posterior tibial pulse bilateral, Lungs: CTA bilateral, no rhonchi, no rales , no accessory muscle use Abdominal: soft, nontender to palpation, no guarding, no appreciable organomegaly Ext: no gross muscle atrophy, no edema, no contractures Neuro: CN II-XI grossly intact, no focal neuro deficits Psych: alert to self only, confused A total of 35 minutes of time were spent preparing this complex discharge summary . Patient Condition at Discharge: Fair Plan - Discharge Summary Discharge Rx Participant: No New Discharge Prescriptions: New LORazepam [Ativan] 0.25 mg PO BID PRN #6 tab PRN Reason: Agitation Or Acute Anxiety Cephalexin [Keflex] 500 mg PO Q12HR 2 Days #4 cap Continue Ferrous Sulfate [Iron (65 MG Elemental)] 325 mg PO HS Changed Mirtazapine 22.5 mg PO HS #45 tab Discontinued Donepezil [Aricept] 10 mg PO DAILY Discharge Medication List Ferrous Sulfate [Iron (65 MG Elemental)] 325 mg PO HS 02/02/20 [History] Cephalexin [Keflex] 500 mg PO Q12HR 2 Days #4 cap 02/04/20 [Rx] LORazepam [Ativan] 0.25 mg PO BID PRN #6 tab 02/04/20 [Rx] Mirtazapine 22.5 mg PO HS #45 tab 02/04/20 [Rx] Follow up Appointment(s)/Referral(s): [facility], [NON-STAFF] - As Needed Jeferson Jaquez MD [Primary Care Provider] - 1-2 days Gaby Gudino MD [STAFF PHYSICIAN] - 1 Week Patient Instructions/Handouts: Dementia (GEN) Activity/Diet/Wound Care/Special Instructions: Activity: as tolerated Diet: regular with increased liquid intake Special Instructions: compression stockings when ambulating Home health will call you likely Thursday. Discharge Disposition: HOME WITH HOME HEALTH SERVICES
== END 2020-02-04 18:12 | disposition home health service (06) | DRG 683 ==
LOC: EC 15:38 → OBSVTOIN 20:19 → 4SSUR 20:19
PROVIDERS: ADMIT Internal Medicine; ATTEND Internal Medicine
DX: N17.0 Acute kidney failure with tubular necrosis (principal); F03.91 Unspecified dementia, unspecified severity, with behavioral disturbance; N39.0 Urinary tract infection, site not specified; D69.6 Thrombocytopenia, unspecified; I27.20 Pulmonary hypertension, unspecified; N18.3 Chronic kidney disease, stage 3 (moderate); N28.89 Other specified disorders of kidney and ureter; I48.91 Unspecified atrial fibrillation; D32.0 Benign neoplasm of cerebral meninges; E86.0 Dehydration; F32.9 Major depressive disorder, single episode, unspecified; I07.1 Rheumatic tricuspid insufficiency; I12.9 Hypertensive chronic kidney disease with stage 1 through stage 4 chronic kidney disease, or unspecified chronic kidney disease; I95.1 Orthostatic hypotension; Z11.59 Encounter for screening for other viral diseases; M19.90 Unspecified osteoarthritis, unspecified site; G47.30 Sleep apnea, unspecified; R22.32 Localized swelling, mass and lump, left upper limb; R74.8 Abnormal levels of other serum enzymes; T44.1X5A Adverse effect of other parasympathomimetics [cholinergics], initial encounter; R74.0 Nonspecific elevation of levels of transaminase and lactic acid dehydrogenase [LDH]; Z66 Do not resuscitate; Z79.899 Other long term (current) drug therapy; Z90.710 Acquired absence of both cervix and uterus; Z95.0 Presence of cardiac pacemaker; Z88.5 Allergy status to narcotic agent; Z90.49 Acquired absence of other specified parts of digestive tract; Z98.51 Tubal ligation status
CPT/HCPCS: 36415; 70450; 71046; 72125; 76705; 80048; 80053; 80306; 81001; 83605; 84484; 85025; 85610; 85730; 87040; 87086; 93005; 96361; 96374; 99285

== ENCOUNTER 2020-03-22 13:55 | Inpatient (IN) | payer MEDICARE, BC ==
[2020-03-22] MEDS ORDERED: SODIUM CHLORIDE 0.9% 1,000 ML IV STA ×2 (14:15)
--- NOTE | 2020-03-22 14:19 | ED ---
General Adult HPI - General Chief complaint: Syncope Stated complaint: Syncope Time Seen by Provider: 03/22/20 13:55 Source: EMS, RN notes reviewed, old records reviewed Mode of arrival: EMS Limitations: altered mental status - History of Present Illness Initial comments: This is a 78-year-old female with a history of atrial fibrillation and dementia renal disease meningioma in the past who apparently was found be unresponsive for approximately 5 minutes while sitting in her walker. She barely did awaken was noted have a low blood pressure. She was transported here for evaluation. No trauma reported no recent fevers chills or sweats. She has however on antibiotics for a suspected urinary tract infection with 3 days of her medication, Augmentin, remaining. - Related Data Home Medications Medication Instructions Recorded Confirmed Mirtazapine 15 mg PO HS 03/22/20 03/22/20 Previous Rx's Medication Instructions Recorded LORazepam [Ativan] 0.25 mg PO BID PRN #6 tab 02/04/20 Allergies Allergy/AdvReac Type Severity Reaction Status Date / Time hydromorphone [From Dilaudid] AdvReac Severe Confusion Verified 03/22/20 14:54 Review of Systems ROS Statement: Those systems with pertinent positive or pertinent negative responses have been documented in the HPI. ROS Other: All systems not noted in ROS Statement are negative. Past Medical History Past Medical History: Atrial Fibrillation, Dementia, Memory Impairment, Osteoarthritis (OA), Renal Disease, Sleep Apnea/CPAP/BIPAP Additional Past Medical History / Comment(s): MENINGIOMA BRAIN TUMOR ,KIDNEY MASS, CHRONIC KIDNEY DISEASE STAGE 3., MEDTRONIC PACEMAKER., MASS LEFT ARM. History of Any Multi-Drug Resistant Organisms: None Reported Past Surgical History: Back Surgery, Cholecystectomy, Hysterectomy, Orthopedic Surgery, Pacemaker, Tubal Ligation Additional Past Surgical History / Comment(s): BACK SURGERY X2 , FOOT SURGERY X4, TRIGGER THUMB, ARTHROSCOPY RIGHT KNEE, BLADDER SUSPENSION. Past Anesthesia/Blood Transfusion Reactions: No Reported Reaction Type of Cardiac Device: Permanent Pacemaker Device Placement Date:: 01/23/2020 Past Psychological History: Depression Smoking Status: Never smoker Past Alcohol Use History: None Reported Past Drug Use History: None Reported - Past Family History Mother Family Medical History: No Reported History General Exam - General Exam Comments Initial Comments: This is a well-developed asthenic appearing female who is awake and somewhat lethargic but apparently her normal baseline mental status. Limitations: altered mental status General appearance: alert, in no apparent distress Head exam: Present: atraumatic, normocephalic, normal inspection Eye exam: Present: normal appearance, PERRL, EOMI. Absent: scleral icterus, c onjunctival injection, periorbital swelling ENT exam: Present: mucous membranes dry Neck exam: Present: normal inspection. Absent: tenderness, meningismus, lymphadenopathy Respiratory exam: Present: normal lung sounds bilaterally. Absent: respiratory distress, wheezes, rales, rhonchi, stridor Cardiovascular Exam: Present: regular rate, normal rhythm, normal heart sounds. Absent: systolic murmur, diastolic murmur, rubs, gallop, clicks GI/Abdominal exam: Present: soft, normal bowel sounds. Absent: distended, tenderness, guarding, rebound, rigid Extremities exam: Present: normal inspection, full ROM, normal capillary refill. Absent: tenderness, pedal edema, joint swelling, calf tenderness Back exam: Present: normal inspection Neurological exam: Present: alert, altered, CN II-XII intact. Absent: motor sensory deficit Psychiatric exam: Present: normal mood, flat affect Skin exam: Present: warm, dry, intact, normal color. Absent: rash Course Vital Signs 03/22/20 03/22/20 03/22/20 14:01 15:00 15:30 Temperature 97.5 F L Pulse Rate 78 59 L 64 Respiratory 16 16 16 Rate Blood Pressure 100/64 110/95 146/95 O2 Sat by Pulse 100 98 Oximetry - Reevaluation(s) Reevaluation #1: 03/22/20 15:50 Reevaluation patient reveals no change Medical Decision Making - Medical Decision Making I did discuss case with Dr. oconnell who did come the emergency department see the patient patient will be admitted for inpatient treatment lactic acidosis is likely secondary to find depletion as an infectious processes not been identified - Lab Data Result diagrams: 03/22/20 14:21 03/22/20 14:21 Lab Results 03/22/20 03/22/20 03/22/20 Range/Units 14:21 14:21 14:21 WBC 5.7 (3.8-10.6) k/uL RBC 5.15 (3.80-5.40) m/uL Hgb 15.8 D (11.4-16.0) gm/dL Hct 48.7 H (34.0-46.0) % MCV 94.5 (80.0-100.0) fL MCH 30.6 (25.0-35.0) pg MCHC 32.4 (31.0-37.0) g/dL RDW 14.4 (11.5-15.5) % PT 11.6 (9.0-12.0) sec INR 1.1 (<1.2) APTT 22.5 (22.0-30.0) sec D-Dimer 2.92 H (<0.60) mg/L FEU Sodium (137-145) mmol/L Potassium (3.5-5.1) mmol/L Chloride (98-107) mmol/L Carbon Dioxide (22-30) mmol/L Anion Gap mmol/L BUN (7-17) mg/dL Creatinine (0.52-1.04) mg/dL Est GFR (CKD-EPI)AfAm (>60 ml/min/1.73 sqM) Est GFR (CKD-EPI)NonAf (>60 ml/min/1.73 sqM) Glucose (74-99) mg/dL Plasma Lactic Acid Wally (0.7-2.0) mmol/L Calcium (8.4-10.2) mg/dL Magnesium (1.6-2.3) mg/dL Total Bilirubin (0.2-1.3) mg/dL AST (14-36) U/L ALT (4-34) U/L Alkaline Phosphatase (38-126) U/L Creatine Kinase (30-135) U/L Troponin I (0.000-0.034) ng/mL Total Protein (6.3-8.2) g/dL Albumin (3.5-5.0) g/dL Urine Color Yellow Urine Appearance Clear (Clear) Urine pH 5.0 (5.0-8.0) Ur Specific Confluence 1.024 (1.001-1.035) Urine Protein Negative (Negative) Urine Glucose (UA) Negative (Negative) Urine Ketones Negative (Negative) Urine Blood Negative (Negative) Urine Nitrite Negative (Negative) Urine Bilirubin Negative (Negative) Urine Urobilinogen <2.0 (<2.0) mg/dL Ur Leukocyte Esterase Negative (Negative) 03/22/20 03/22/20 03/22/20 Range/Units 14:21 14:21 14:21 WBC (3.8-10.6) k/uL RBC (3.80-5.40) m/uL Hgb (11.4-16.0) gm/dL Hct (34.0-46.0) % MCV (80.0-100.0) fL MCH (25.0-35.0) pg MCHC (31.0-37.0) g/dL RDW (11.5-15.5) % PT (9.0-12.0) sec INR (<1.2) APTT (22.0-30.0) sec D-Dimer (<0.60) mg/L FEU Sodium 135 L (137-145) mmol/L Potassium 4.7 (3.5-5.1) mmol/L Chloride 105 (98-107) mmol/L Carbon Dioxide 15 L (22-30) mmol/L Anion Gap 15 mmol/L BUN 39 H (7-17) mg/dL Creatinine 1.55 H (0.52-1.04) mg/dL Est GFR (CKD-EPI)AfAm 37 (>60 ml/min/1.73 sqM) Est GFR (CKD-EPI)NonAf 32 (>60 ml/min/1.73 sqM) Glucose 142 H (74-99) mg/dL Plasma Lactic Acid Wally 3.2 H* (0.7-2.0) mmol/L Calcium 10.3 H (8.4-10.2) mg/dL Magnesium 1.8 (1.6-2.3) mg/dL Total Bilirubin 1.7 H (0.2-1.3) mg/dL AST 49 H (14-36) U/L ALT 21 (4-34) U/L Alkaline Phosphatase 114 (38-126) U/L Creatine Kinase 29 L (30-135) U/L Troponin I <0.012 (0.000-0.034) ng/mL Total Protein 7.1 (6.3-8.2) g/dL Albumin 3.9 (3.5-5.0) g/dL Urine Color Urine Appearance (Clear) Urine pH (5.0-8.0) Ur Specific Confluence (1.001-1.035) Urine Protein (Negative) Urine Glucose (UA) (Negative) Urine Ketones (Negative) Urine Blood (Negative) Urine Nitrite (Negative) Urine Bilirubin (Negative) Urine Urobilinogen (<2.0) mg/dL Ur Leukocyte Esterase (Negative) - EKG Data -: EKG Interpreted by Me EKG Comments: Pacemaker rhythm with PVCs rate 65 156 QRS 96 QT since QTC 398/413 left exodeviation inferior infarct of undetermined age nonspecific changes. - Radiology Data Radiology results: report reviewed (I did review the imaging and report no acute findings), image reviewed Critical Care Time Total Critical Care Time: 35 Critical Care Time: Critical care time includes initial presentation with history physical labs x- rays discussed with paramedics review of old charting discussed with the admitting physician admission orders and documentation the above Disposition Clinical Impression: Syncope, Dehydration, Renal insufficiency syndrome, Lactic acidosis, D-dimer, elevated Disposition: ADMITTED IP TO THIS [facility] Condition: Fair Referrals: Darrius Woodard MD [Primary Care Provider] - 1-2 days
[2020-03-22 14:34] LABS: Appearance,Urine Clear (Clear); Bilirubin,Urine Negative (Negative); Blood,Urine Negative (Negative); Color,Urine Yellow; Glucose,Urine (UA) Negative (Negative); Ketones,Urine Negative (Negative); Leukocyte Esterase,Urine Negative (Negative); Nitrite,Urine Negative (Negative); Protein,Urine Negative (Negative); Specific Gravity,Urine 1.024 (1.001-1.035); Urobilinogen,Urine <2.0 mg/dL (<2.0)
[2020-03-22 14:44] LABS: Albumin 3.9 g/dL (3.5-5.0); Calcium 10.3 mg/dL (8.4-10.2); INR 1.1 (<1.2); Magnesium 1.8 mg/dL (1.6-2.3); Potassium 4.7 mmol/L (3.5-5.1); Prothrombin Time 11.6 sec (9.0-12.0); Total Bilirubin 1.7 mg/dL (0.2-1.3); Total Protein 7.1 g/dL (6.3-8.2)
[2020-03-22 14:51] LABS: Partial Thromboplastin Time 22.5 sec (22.0-30.0)
--- NOTE | 2020-03-22 14:51 | XR ---
EXAMINATION TYPE: XR chest 2V DATE OF EXAM: 03/22/2020 COMPARISON: Chest x-ray February 02, 2020. CT chest January 02, 2020. HISTORY: Syncope and weakness. TECHNIQUE: Frontal and lateral views of the chest are obtained. FINDINGS: There is chronic parenchymal change without suspicious focal air space opacity, pleural ef fusion, or pneumothorax seen bilaterally. The cardiac silhouette size is enlarged with dual-lead pac emaker redemonstrated. The osseous structures are redemonstrated demineralized. Cholecystectomy cli ps are redemonstrated. IMPRESSION: Chronic changes and cardiomegaly without acute pulmonary process.
[2020-03-22 15:08] LABS: Basophils % (A) 1 %; D-Dimer 2.92 mg/L FEU (<0.60); Eosinophils # (A) 0.1 k/uL (0-0.7); Eosinophils % (A) 1 %; HCT 48.7 % (34.0-46.0); Lymphocytes # (A) 1.8 k/uL (1.0-4.8); Lymphocytes % (A) 32 %; MCH 30.6 pg (25.0-35.0); MCHC 32.4 g/dL (31.0-37.0); MCV 94.5 fL (80.0-100.0); Mean Platelet Volume 12.9; Monocytes # (A) 0.2 k/uL (0-1.0); Monocytes % (A) 4 %; Neutrophils # (A) 3.5 k/uL (1.3-7.7); Neutrophils % (A) 61 %; Platelet Count 147 k/uL (150-450); RBC 5.15 m/uL (3.80-5.40); RDW 14.4 % (11.5-15.5); WBC 5.7 k/uL (3.8-10.6)
[2020-03-22 15:13] LABS: HGB 15.8 gm/dL (11.4-16.0)
--- NOTE | 2020-03-22 15:42 | CT ---
EXAMINATION TYPE: CT brain wo con DATE OF EXAM: 03/22/2020 HISTORY: Fall with LOC and confusion, headache. CT DLP: 1142.4 mGycm. Automated Exposure Control for Dose Reduction was Utilized. TECHNIQUE: CT scan of the head is performed without contrast. COMPARISON: CT brain February 02, 2020. FINDINGS: There is no acute intracranial hemorrhage or midline shift identified. There is diffuse v entricular and sulcal prominence consistent with diffuse age-related cerebral atrophy. There is low- attenuation in the periventricular white matter consistent with chronic small vessel ischemic change. The globes are intact and the visualized sinuses are clear. The calvarium is intact. Stable 1.8 c m area right parietal ossified meningioma axial image 50. IMPRESSION: No acute intracranial hemorrhage or midline shift. There is mild diffuse age-related ce rebral atrophy and moderate to advanced chronic small vessel ischemic change redemonstrated. No sign ificant change from prior CT.
[2020-03-22] MEDS ORDERED: NALOXONE 0.4 MG/ML 1 ML VIAL IV PRN (15:57)
[2020-03-22 16:02] LABS: Large Platelets Present
[2020-03-22] MEDS: SODIUM CHLORIDE 0.9% 1,000 ML IV SCH ×2 (18:40→23:48)
--- NOTE | 2020-03-22 18:45 | NM ---
EXAMINATION TYPE: NM pul perfusion DATE OF EXAM: 03/22/2020 COMPARISON: NONE HISTORY: Following administration of 4.8 mCi Tc 99m MAA. Images obtained post injection. FINDINGS: There are small subsegmental perfusion defect in the superior segment of the left lower lobe. Right l elyssa shows fairly normal perfusion. IMPRESSION: Single subsegmental sized perfusion defect in the left lower lobe. This is consistent with low probab ility of pulmonary embolism.
[2020-03-22] MEDS ORDERED: ASPIRIN 300 MG SUPP RECTAL STA (18:47)
--- NOTE | 2020-03-22 18:51 | P.HPIM ---
History of Present Illness this is a pleasant 79 yo F with past medical history of progressive dementia and atrial fibrillation non complaint with her xarelto for many years,status post pacemaker , osteoarthritis, chronic kidney disease stage III, Meningioma of the brain, patient was feeling gradually week, for 2 days she was not eating and drinking well, today her son came to take her to the bathroom when she came out of the bathroom she fell and could not move, she was more confused, her right lip." Was called and she was drooling. When I talked to the patient she keep her eyes closed all the time, she follow simple commands at times and it was noticed moving her right upper extremity but not sure of his due to her confusion or neurological deficits As per son patient was not complaining of from specific symptom, no chest pain or dyspnea or abdominal pain or vomiting or diarrhea. No fever. She is nonsmoker, nonalcoholic. Vitas looks stable. Urine analysis is no suspicious for infection. CBC is unremarkable, hemoglobin is 15.8 which looks concentrated sample INR is 1.1, d- dimer is elevated at 2.9 , sodium 135, creatinine 1.5, baseline creatinine is 1.31.6 . Glucose is high at 142. Calcium 10.3, total bilirubin 1.7 which is slightly elevated, AST slightly up 149 normal ALT of 21, troponin is negative less than 0.012. Elevated lactic acid 3.2 CT of the brain is negative for acute process. Chest x-ray: No acute process is either. EKG showing sinus rhythm at 65 with frequent PVC, no significant ST-T changes and QTC is 413 In the emergency room she received 1 L of normal saline started at 130 mL/h. Review of Systems n/a Past Medical History Past Medical History: Atrial Fibrillation, Dementia, Memory Impairment, Osteoarthritis (OA), Renal Disease, Sleep Apnea/CPAP/BIPAP Additional Past Medical History / Comment(s): MENINGIOMA BRAIN TUMOR ,KIDNEY MASS, CHRONIC KIDNEY DISEASE STAGE 3., MEDTRONIC PACEMAKER., MASS LEFT ARM. History of Any Multi-Drug Resistant Organisms: None Reported Past Surgical History: Back Surgery, Cholecystectomy, Hysterectomy, Orthopedic Surgery, Pacemaker, Tubal Ligation Additional Past Surgical History / Comment(s): BACK SURGERY X2 , FOOT SURGERY X4, TRIGGER THUMB, ARTHROSCOPY RIGHT KNEE, BLADDER SUSPENSION. Past Anesthesia/Blood Transfusion Reactions: No Reported Reaction Type of Cardiac Device: Permanent Pacemaker Device Placement Date:: 01/23/2020 Past Psychological History: Depression Smoking Status: Never smoker Past Alcohol Use History: None Reported Past Drug Use History: None Reported - Past Family History Mother Family Medical History: No Reported History Medications and Allergies Home Medications Medication Instructions Recorded Confirmed Type LORazepam [Ativan] 0.25 mg PO BID PRN #6 tab 02/04/20 03/22/20 Rx Mirtazapine 15 mg PO HS 03/22/20 03/22/20 History Allergies Allergy/AdvReac Type Severity Reaction Status Date / Time hydromorphone [From Dilaudid] AdvReac Severe Confusion Verified 03/22/20 14:54 Physical Exam Vitals: Vital Signs Temp Pulse Resp BP Pulse Ox 03/22/20 15:30 64 16 146/95 98 03/22/20 15:00 59 L 16 110/95 100 03/22/20 14:01 97.5 F L 78 16 100/64 Intake and Output 03/22/20 03/22/20 03/22/20 06:59 14:59 22:59 Other: Weight 68.039 kg -GENERAL: The patient is confused, keep I close all the time, answer some questions with incoherent words, follow simple commands but not all the time, not in distress but looks dehydrated. HEENT: Pupils are round and equally reacting to light. EOMI. No scleral icterus. No conjunctival pallor. Normocephalic, atraumatic. No pharyngeal erythema. No thyromegaly. CARDIOVASCULAR: S1 and S2 present. No murmurs, rubs, or gallops. PULMONARY: Chest is clear to auscultation, no wheezing or crackles. ABDOMEN: Soft, nontender, nondistended, normoactive bowel sounds. No palpable organomegaly. MUSCULOSKELETAL: No joint swelling or deformity. EXTREMITIES: No cyanosis, clubbing, or pedal edema. -NEUROLOGICAL: Gross neurological exam is limited by patient mental status, cranial nerves are no gross abnormality in noted, when as she could not move her right upper extremity while she moved all other extremities. Meningeal signs are absent SKIN: No rashes. no petechiae. Results CBC & Chem 7: 03/22/20 14:21 03/22/20 14:21 Labs: Abnormal Lab Results - Last 24 Hours (Table) 03/22/20 03/22/20 03/22/20 Range/Units 14:21 14:21 14:21 Hct 48.7 H (34.0-46.0) % Plt Count 147 L (150-450) k/uL D-Dimer 2.92 H (<0.60) mg/L FEU Sodium 135 L (137-145) mmol/L Carbon Dioxide 15 L (22-30) mmol/L BUN 39 H (7-17) mg/dL Creatinine 1.55 H (0.52-1.04) mg/dL Glucose 142 H (74-99) mg/dL Plasma Lactic Acid Wally (0.7-2.0) mmol/L Calcium 10.3 H (8.4-10.2) mg/dL Total Bilirubin 1.7 H (0.2-1.3) mg/dL AST 49 H (14-36) U/L Creatine Kinase 29 L (30-135) U/L 03/22/20 Range/Units 14:21 Hct (34.0-46.0) % Plt Count (150-450) k/uL D-Dimer (<0.60) mg/L FEU Sodium (137-145) mmol/L Carbon Dioxide (22-30) mmol/L BUN (7-17) mg/dL Creatinine (0.52-1.04) mg/dL Glucose (74-99) mg/dL Plasma Lactic Acid Wally 3.2 H* (0.7-2.0) mmol/L Calcium (8.4-10.2) mg/dL Total Bilirubin (0.2-1.3) mg/dL AST (14-36) U/L Creatine Kinase (30-135) U/L Assessment and Plan Assessment: Altered mental status with facial droop and possible right upper extremity wea kness, rule out stroke Dehydration with elevated lactic acid Chronic kidney disease Progressive dementia History of atrial fibrillation and patient is noncompliant with Xarelto Osteoarthritis Plan: This is a pleasant 79 years old female, who presents because of altered mental status, rule out stroke. Continue with hydration, follow-up result of perfusion ventilation scan, patient aspirated. Consult with neurology service. Check TSH, vitamin B12 Labs and medication were reviewed.. Continue same treatment. Continue with symptomatic treatment. Resume home medication. Monitor lytes and vitals. DVT and GI prophylaxis. Further recommendations of the clinical course of the patient DVT prophylaxis: Subcutaneous heparin GI Prophylaxis: Pepcid PT/OT: Pending Prognosis is guarded
[2020-03-22] MEDS: HEPARIN SODIUM,PORCINE 5,000 UNIT/ML 1 ML VIAL SQ SCH ×2 (20:12→20:26)
[2020-03-22] MEDS: LORazepam 0.5 MG TAB PO PRN (20:12)
[2020-03-22] MEDS: MIRTAZAPINE 15 MG TAB PO SCH ×2 (20:12→20:26)
[2020-03-22] MEDS: FAMOTIDINE 20 MG/2 ML VIAL IV SCH ×2 (20:12→20:26)
[2020-03-23 07:15] LABS: Albumin 3.3 g/dL (3.5-5.0); Bilirubin, Delta 0.5 mg/dL (0.0-0.2); Bilirubin,Unconjugated 0.9 mg/dL (0.0-1.1); Calcium 9.2 mg/dL (8.4-10.2); Magnesium 1.6 mg/dL (1.6-2.3); Potassium 4.3 mmol/L (3.5-5.1); Total Bilirubin 1.4 mg/dL (0.2-1.3); Total Protein 6.2 g/dL (6.3-8.2)
[2020-03-23 07:38] LABS: Basophils # (A) 0.1 k/uL (0-0.2); Basophils % (A) 1 %; Eosinophils # (A) 0.1 k/uL (0-0.7); Eosinophils % (A) 2 %; HCT 44.3 % (34.0-46.0); Hypochromasia Slight; Lymphocytes % (A) 17 %; MCH 31.2 pg (25.0-35.0); MCHC 31.6 g/dL (31.0-37.0); MCV 98.7 fL (80.0-100.0); Monocytes # (A) 0.5 k/uL (0-1.0); Monocytes % (A) 8 %; Neutrophils # (A) 3.9 k/uL (1.3-7.7); Neutrophils % (A) 70 %; RBC 4.48 m/uL (3.80-5.40); RDW 14.3 % (11.5-15.5); WBC 5.6 k/uL (3.8-10.6)
[2020-03-23 08:17] LABS: Large Platelets Present; Poikilocytosis (M) Present
[2020-03-23 08:19] LABS: Platelet Count 89 k/uL (150-450)
[2020-03-23] MEDS: SODIUM CHLORIDE 0.9% 1,000 ML IV SCH ×3 (08:29→23:43)
[2020-03-23] MEDS: HEPARIN SODIUM,PORCINE 5,000 UNIT/ML 1 ML VIAL SQ SCH ×2 (08:29→20:03)
[2020-03-23] MEDS: FAMOTIDINE 20 MG/2 ML VIAL IV SCH (08:29)
[2020-03-23 10:52] LABS: Hemoglobin A1C 5.3 % (4.0-6.0)
[2020-03-23] MEDS: ASPIRIN 325 MG TAB PO SCH (11:26)
--- NOTE | 2020-03-23 12:48 | P.CNNES ---
History of Present Illness Consult date: 03/23/20 Requesting physician: Frederick Bravo Reason for Consult: Altered mental status History of Present Illness: Patient is a 79-year-old female came to the hospital by ambulance yesterday at 2 PM for syncopal spell. Patient has history of atrial fibrillation noncompliant with Xarelto, status post pacemaker. Patient also has history of cerebral meningioma, stable for years. Patient recently is being treated for UTI with Augmentin, with 3 days of her medication remaining. Patient has severe dementia, not able to provide any history. According to EMS flow sheet when they arrived patient was sitting upright with chief complaint of unresponsiveness. Patient was unresponsive to all stimuli. EMS was advised by family that when they went to check on the patient, they found her unresponsive to all stimuli. She was last seen normal approximately 2 hours prior. Patient was pale, warm and dry. She was drooling profusely. No history of seizures or stroke in the past. Patient's blood glucose was normal. She has been refusing to take her medications including antibiotics for UTI. It was also reported to EMS that patient does have history of dementia and is normally alert 2 but confused. Later on while en-route to the hospital patient was noted to be alert to verbal stimuli and was able to follow some commands. Patient was able to move all 4 extremities. Patient's vital signs at the scene was blood pressure 101/72, pulse rate 73, saturation 98% and blood glucose 146. Vital signs on arrival was blood pressure 100/64, pulse rate 70 temperature 97.5. Computed tomography scan of head showed no acute ventricle hemorrhage or midline shift. There is mild diffuse age-related cerebral atrophy and moderate to advanced chronic small vessel ischemic change redemonstrated. No significant change from prior CT. Chest x-ray showed chronic changes and cardiomegaly without acute pulmonary process. EKG shows sinus rhythm with frequent ventricular paced complexes and premature supraventricular complexes. Left axis deviation. Nuclear medicine pulmonary perfusion study reveals single subsegmental size perfusion defect in the left lower lobe. This is consistent with low probability of pulmonary embolism. Review of Systems ROS unobtainable: due to mental status Past Medical History Past Medical History: Atrial Fibrillation, Dementia, Memory Impairment, Osteoarthritis (OA), Renal Disease, Sleep Apnea/CPAP/BIPAP Additional Past Medical History / Comment(s): MENINGIOMA BRAIN TUMOR ,KIDNEY MAS S, CHRONIC KIDNEY DISEASE STAGE 3., [employer] PACEMAKER., MASS LEFT ARM. History of Any Multi-Drug Resistant Organisms: None Reported Past Surgical History: Back Surgery, Cholecystectomy, Hysterectomy, Orthopedic Surgery, Pacemaker, Tubal Ligation Additional Past Surgical History / Comment(s): BACK SURGERY X2 , FOOT SURGERY X4, TRIGGER THUMB, ARTHROSCOPY RIGHT KNEE, BLADDER SUSPENSION. Past Anesthesia/Blood Transfusion Reactions: No Reported Reaction Type of Cardiac Device: Permanent Pacemaker Device Placement Date:: 01/23/2020 Past Psychological History: Depression Smoking Status: Never smoker Past Alcohol Use History: None Reported Past Drug Use History: None Reported - Past Family History Mother Family Medical History: No Reported History Medications and Allergies Home Medications Medication Instructions Recorded Confirmed Type LORazepam [Ativan] 0.25 mg PO BID PRN #6 tab 02/04/20 03/22/20 Rx Mirtazapine 15 mg PO HS 03/22/20 03/22/20 History Allergies Allergy/AdvReac Type Severity Reaction Status Date / Time hydromorphone [From Dilaudid] AdvReac Severe Confusion Verified 03/22/20 14:54 Physical Examination - Vital Signs Vital Signs: Vital Signs Temp Pulse Pulse Resp BP BP Pulse Ox 03/23/20 08:34 97.8 F 62 16 136/81 99 03/23/20 04:00 61 16 163/84 99 03/22/20 23:59 63 16 149/88 100 03/22/20 20:00 97.7 F 62 16 146/97 100 03/22/20 18:57 96.8 F L 67 125/58 98 03/22/20 15:30 64 16 146/95 98 03/22/20 15:00 59 L 16 110/95 100 03/22/20 14:01 97.5 F L 78 16 100/64 Intake and Output 03/22/20 03/23/20 03/23/20 22:59 06:59 14:59 Output Total 0 Balance 0 Output: Urine 0 Other: Voiding Method Toilet Toilet Toilet Diaper Diaper # Voids 1 Weight 68.039 kg 67.5 kg Patient is an elderly female, obviously demented. She is oriented 1, only knows her name. Could not tell month, the year or her age. She mumbles, appears to have some hallucinations, as she responds to external stimuli in the hallway. She is easily distractible, very short attention span. Attention, concentration and fund of knowledge is limited. On cranial nerve examination, Patient's pupils are round and reacting to light. Visual deal could not be tested. Her face is symmetric and tongue protrudes the midline. Patient is slightly hard of hearing. Shoulder shrug normal. Patient's muscle strength appears normal. She did not cooperate well. Reflexes are 1+ and plantars are withdrawal. Tone and bulk of muscles normal. Sensory touch is equal. No obvious ataxia although patient did not cooperate. Gait cannot be assessed. No obvious bruit, S1 and S2 audible. Abdomen soft nontender, chest clear. No peripheral edema. Results - Laboratory Findings CBC and BMP: 03/23/20 05:42 03/23/20 05:42 Abnormal Lab Findings: Abnormal Labs 03/22/20 03/22/20 03/22/20 14:21 14:21 14:21 Hct 48.7 H Plt Count 147 L D-Dimer 2.92 H Sodium 135 L Carbon Dioxide 15 L BUN 39 H Creatinine 1.55 H Glucose 142 H Plasma Lactic Acid Wally Calcium 10.3 H Total Bilirubin 1.7 H Delta Bilirubin AST 49 H Creatine Kinase 29 L Total Protein Albumin 03/22/20 03/23/20 03/23/20 14:21 05:42 05:42 Hct Plt Count 89 L D-Dimer Sodium 135 L Carbon Dioxide 21 L BUN 39 H Creatinine 1.42 H Glucose Plasma Lactic Acid Wally 3.2 H* Calcium Total Bilirubin 1.4 H Delta Bilirubin 0.5 H AST 38 H Creatine Kinase Total Protein 6.2 L Albumin 3.3 L Assessment and Plan Assessment: * Syncopal episode with unresponsiveness, unclear etiology. Rule out seizure. * Advanced dementia * History of cerebral meningioma 1.8 cm over the right parietal convexity. * Atrial fibrillation, noncompliant with medication. Plan: * Patient underwent EEG , which did not reveal any epileptiform activity. It was a limited study and only 10 minutes of recording was accomplished because of patient noncooperation. A lot of movement artifact was also seen. Suggest repeating study, if patient becomes more cooperative. As patient has a fairly large cerebral meningioma, patient is high risk for seizures. We'll empirically place on low-dose Keppra 250 mg twice a day for seizure prophylaxis given this current spell and presence of meningioma. * Patient has atrial fibrillation, patient has been on Xarelto but she is noncompliant does not take medication, almost for last 3 years as per patient's grandson report. Patient has been placed on aspirin regimen. * Carotid Doppler was performed, which showed no significant stenosis.
[2020-03-23 13:21] VITALS: BMI 25.5
--- NOTE | 2020-03-23 13:39 | US ---
EXAMINATION TYPE: US carotid duplex BILAT DATE OF EXAM: 03/23/2020 COMPARISON: NONE CLINICAL HISTORY: Syncope. Syncope exam limitations patient talking unabl to move neck well. EXAM MEASUREMENTS: RIGHT: Peak Systolic Velocity (PSV) cm/sec ----- Right CCA: 66.4 ----- Right ICA: 45.5 ----- Right ECA: 56.0 ICA/CCA ratio: 0.7 RIGHT: End Diastole cm/sec ----- Right CCA: 16.8 ----- Right ICA: 14.2 ----- Right ECA: 0 LEFT: Peak Systolic Velocity (PSV) cm/sec ----- Left CCA: 65.3 ----- Left ICA: 71.1 ----- Left ECA: 69.7 ICA/CCA ratio: 1.1 LEFT: End Diastole cm/sec ----- Left CCA: 10.0 ----- Left ICA: 15.9 ----- Left ECA: 31.8 VERTEBRALS (direction of flow): Right Vertebral: Antegrade Left Vertebral: Antegrade Rhythm: Normal Vessels dive deep limiting exam. IMPRESSION: Limited examination without definite evidence for hemodynamically significant stenosis. Criteria for Assigning % of Stenosis / Diameter reduction (Estimation based on the indirect measurements of the internal carotid artery velocities (ICA PSV). 1. Normal (no stenosis)=ICA PSV < 125 cm/s: ratio < 2.0: ICA EDV<40 cm/s. 2. Less than 50% stenosis=ICA PSV < 125 cm/s: ratio < 2.0: ICA EDV<40 cm/s. 3. 50 to 69% stenosis=ICA PSV of 125 to 230 cm/s: ration 2.0 ? 4.0: ICA EDV 40-100 cm/s. 4. Greater than 70% stenosis to near occlusion= ICA PSV > 230 cm/s: ratio > 4.0: ICA EDV > 100 cm/s. 5. Near occlusion= ICA PSV velocities may be low or undetectable: variable ratio and ICA EDV. 6. Total occlusion=unable to detect flow.
--- NOTE | 2020-03-23 15:38 | EEG ---
ELECTROENCEPHALOGRAM REPORT DATE OF SERVICE: 03/23/2020 PREAMBLE: This is a 79-year-old female with an episode of unresponsiveness. This study is performed to evaluate for any epileptiform activity. EEG FINDINGS: This is a 21-channel routine EEG recording in a patient utilizing 10-20 international system with referential and bipolar montages. The EEG is limited only for 10 minutes, as the patient was not cooperating and the study had to be terminated early. The background consists of poorly developed and regulated mixed frequencies of generalized delta and theta activity seen in bihemispheric region. Background does not seem to be reactive to eye opening or closing. Photic stimulation was not performed. Different stages of sleep were not seen. Frequent myogenic activity was seen. IMPRESSION: This is an abnormal EEG due to background slowing of moderate to severe degree. This is suggestive of generalized cerebral dysfunction as can be seen with toxic metabolic encephalopathies or due to diffuse structural brain abnormality. No definitive epileptiform activity was seen. EEG was limited due to frequent myogenic and movement artifacts. Consider a repeat study, if the patient cooperates with testing. MMQUINCYL / ANNAN: [id number] / [facility]
[2020-03-23] MEDS: levETIRAcetam 250 MG TAB PO SCH (20:02)
[2020-03-23] MEDS: MIRTAZAPINE 15 MG TAB PO SCH (20:03)
--- NOTE | 2020-03-24 03:46 | P.PN ---
Subjective this is a pleasant 79 yo F with past medical history of progressive dementia and atrial fibrillation non complaint with her xarelto for many years,status post pacemaker , osteoarthritis, chronic kidney disease stage III, Meningioma of the brain, patient was feeling gradually week, for 2 days she was not eating and drinking well, today her son came to take her to the bathroom when she came out of the bathroom she fell and could not move, she was more confused, her right lip." Was called and she was drooling. When I talked to the patient she keep her eyes closed all the time, she follow simple commands at times and it was noticed moving her right upper extremity but not sure of his due to her confusion or neurological deficits As per son patient was not complaining of from specific symptom, no chest pain or dyspnea or abdominal pain or vomiting or diarrhea. No fever. She is nonsmoker, nonalcoholic. Vitas looks stable. Urine analysis is no suspicious for infection. CBC is unremarkable, hemoglobin is 15.8 which looks concentrated sample INR is 1.1, d- dimer is elevated at 2.9 , sodium 135, creatinine 1.5, baseline creatinine is 1 .31.6 . Glucose is high at 142. Calcium 10.3, total bilirubin 1.7 which is slightly elevated, AST slightly up 149 normal ALT of 21, troponin is negative less than 0.012. Elevated lactic acid 3.2 CT of the brain is negative for acute process. Chest x-ray: No acute process is either. EKG showing sinus rhythm at 65 with frequent PVC, no significant ST-T changes and QTC is 413 In the emergency room she received 1 L of normal saline started at 130 mL/h. 03/23/20 Patient remains confused, she closes eye similar to yesterday and she does not follow command. I discussed the case with neurologist, patient could not finish her EEG and she is noncooperative. Patient is high-risk for seizure due to her meningioma and neurologist recommendation to start on Keppra. Also patient is on aspirin and was ultimately to per hour, normoactive 75 ml/h. labs reviewed looks stable we will need to keep monitor the patient we will order physical therapy evaluation to see if patient couldn't cooperate Objective - Vital Signs Vital signs: Vital Signs Temp 97.7 F 03/23/20 11:59 Pulse 65 03/23/20 11:59 Resp 16 03/23/20 11:59 BP 150/81 03/23/20 11:59 Pulse Ox 98 03/23/20 11:59 Intake & Output 03/22/20 03/23/20 03/23/20 18:59 06:59 18:59 Intake Total 0 Output Total 0 Balance 0 0 Weight 68.039 kg 67.5 kg 67.5 kg Intake: Oral 0 Output: Urine 0 Other: Voiding Method Toilet Toilet Diaper Diaper # Voids 1 2 - Exam -GENERAL: The patient is confused, keep I close all the time, looks similar to yesterday HEENT: Pupils are round and equally reacting to light. EOMI. No scleral icterus. No conjunctival pallor. Normocephalic, atraumatic. No pharyngeal erythema. No thyromegaly. CARDIOVASCULAR: S1 and S2 present. No murmurs, rubs, or gallops. PULMONARY: Chest is clear to auscultation, no wheezing or crackles. ABDOMEN: Soft, nontender, nondistended, normoactive bowel sounds. No palpable organomegaly. MUSCULOSKELETAL: No joint swelling or deformity. EXTREMITIES: No cyanosis, clubbing, or pedal edema. -NEUROLOGICAL: Gross neurological exam is limited by patient mental status, cranial nerves are no gross abnormality in noted, when as she could not move her right upper extremity while she moved all other extremities, however it keep her right upper extremity close to her body. Meningeal signs are absent SKIN: No rashes. no petechiae. - Labs CBC & Chem 7: 03/23/20 05:42 03/23/20 05:42 Labs: Abnormal Lab Results - Last 24 Hours (Table) 03/22/20 03/23/20 03/23/20 Range/Units 14:21 05:42 05:42 Hct 48.7 H (34.0-46.0) % Plt Count 147 L 89 L (150-450) k/uL Sodium 135 L (137-145) mmol/L Carbon Dioxide 21 L (22-30) mmol/L BUN 39 H (7-17) mg/dL Creatinine 1.42 H (0.52-1.04) mg/dL Total Bilirubin 1.4 H (0.2-1.3) mg/dL Delta Bilirubin 0.5 H (0.0-0.2) mg/dL AST 38 H (14-36) U/L Total Protein 6.2 L (6.3-8.2) g/dL Albumin 3.3 L (3.5-5.0) g/dL Assessment and Plan Assessment: -Altered mental status with possible seizure, discussed with the neurology service EEG would not be tolerated by the patient, I agree with neurologist recommendation to a small dose of Keppra and monitor patient, patient is high- risk for seizure due to her meningioma -Cerebral meningioma -Possible Atrial fibrillation, noncompliant with Xarelto for 2-3 years as per her grandson. Patient was started on aspirin. -Dehydration with elevated lactic acid, improving -Chronic kidney disease -Progressive dementia -History of atrial fibrillation and patient is noncompliant with Xarelto -Osteoarthritis Plan: This is a pleasant 79 years old female, who presents because of altered mental status, continue with Keppra continue with normal saline, continue with aspirin follow-up neurologist recommendation. Monitor mental status. Labs and medication were reviewed.. Continue same treatment. Continue with symptomatic treatment. Resume home medication. Monitor lytes and vitals. DVT and GI prophylaxis. Further recommendations of the clinical course of the patient DVT prophylaxis: Subcutaneous heparin GI Prophylaxis: Pepcid PT/OT: Pending Prognosis is guarded
[2020-03-24] MEDS: SODIUM CHLORIDE 0.9% 1,000 ML IV SCH ×2 (06:37→21:08)
[2020-03-24 06:58] LABS: Basophils % (A) 1 %; Eosinophils # (A) 0.1 k/uL (0-0.7); Eosinophils % (A) 3 %; HCT 37.3 % (34.0-46.0); HGB 12.4 gm/dL (11.4-16.0); Lymphocytes # (A) 0.7 k/uL (1.0-4.8); Lymphocytes % (A) 25 %; MCH 31.1 pg (25.0-35.0); MCHC 33.2 g/dL (31.0-37.0); MCV 93.6 fL (80.0-100.0); Mean Platelet Volume 11.2; Monocytes # (A) 0.2 k/uL (0-1.0); Monocytes % (A) 6 %; Neutrophils # (A) 1.7 k/uL (1.3-7.7); Neutrophils % (A) 64 %; RBC 3.99 m/uL (3.80-5.40); RDW 14.3 % (11.5-15.5); WBC 2.7 k/uL (3.8-10.6)
[2020-03-24 07:01] LABS: Albumin 2.8 g/dL (3.5-5.0); Bilirubin, Delta 0.3 mg/dL (0.0-0.2); Bilirubin,Unconjugated 1.2 mg/dL (0.0-1.1); Magnesium 1.4 mg/dL (1.6-2.3); Potassium 3.9 mmol/L (3.5-5.1); Total Bilirubin 1.5 mg/dL (0.2-1.3); Total Protein 5.5 g/dL (6.3-8.2)
[2020-03-24 07:05] LABS: Platelet Count 103 k/uL (150-450)
[2020-03-24] MEDS: levETIRAcetam 250 MG TAB PO SCH ×2 (08:49→20:05)
[2020-03-24] MEDS: HEPARIN SODIUM,PORCINE 5,000 UNIT/ML 1 ML VIAL SQ SCH ×2 (08:49→20:05)
[2020-03-24] MEDS: ASPIRIN 325 MG TAB PO SCH (08:49)
[2020-03-24] MEDS: FAMOTIDINE 20 MG TAB PO SCH (08:49)
[2020-03-24] MEDS: MAGNESIUM SULFATE-D5W PMX 1 GM in DEXTROSE/WATER 1 100ML.BAG IVPB SCH ×3 (18:02→21:11)
[2020-03-24] MEDS: MIRTAZAPINE 15 MG TAB PO SCH (20:05)
--- NOTE | 2020-03-24 23:46 | P.PN ---
Subjective Progress Note Date: 03/24/20 Principal diagnosis: Encephalopathy Ms. Coats is a 79-year-old female with a past medical history of progressive dementia, atrial fibrillation noncompliant with Xarelto for many years, status post pacemaker, osteoarthritis, CKD, meningioma of the brain brought in by her and son for progressive worsening of her mentation. As per discussion with her at bedside, he mentions that progressively for the past 4 to 5 weeks she has declined in her mentation, also had decreased p.o. intake. She did not have any specific complaints but gradually will worsen over the course of time. Eventually they decided to bring her to the hospital. At the time of admission patient had CT scan of the brain that was showing no acute intracranial hemorrhage or midline shift, mild diffuse age-related cerebral atrophy and moderate to advanced chronic small vessel ischemic changes. On her labs she had mildly elevated d-dimer for which pulmonary perfusion scan was done that was consistent with low probability of PE. Neurology consult was also obtained and the patient had work-up done with carotid artery Doppler study that was showing no definitive evidence of hemodynamically significant stenosis and she also had EEG done showing generalized cerebral dysfunction due to diffuse structural brain abnormality. Eventually patient was started on Keppra. Currently the patient is lying in her bed sleeping. Her mentions that she was very agitated earlier this afternoon and was throwing things and so he did not want me to disturb her. On reviewing the vitals patient's temperature is 97.5, heart rate around 70, rest rate 18, blood pressure 143/77, saturating at 99% on room air. Patient's labs from this morning showed white count of 2.7, hemoglobin 12.4, platelets 103. Sodium 131, potassium 3.9, chloride 108, bicarb 21, BUN 27, creatinine 1.08. Active Medications Aspirin (Aspirin 325 Mg Tab) 325 mg PO DAILY [facility] Last Admin: 03/24/20 08:49 Dose: 325 mg Documented by: Famotidine (Famotidine 20 Mg Tab) 20 mg PO DAILY [facility] Last Admin: 03/24/20 08:49 Dose: 20 mg Documented by: Heparin Sodium (Porcine) (Heparin Sodium,Porcine 5,000 Unit/Ml 1 Ml Vial) 5,000 unit SQ Q12HR [facility] Last Admin: 03/24/20 20:05 Dose: 5,000 unit Documented by: Sodium Chloride (Saline 0.9%) 1,000 mls @ 75 mls/hr IV .[id number] [facility] Last Admin: 03/24/20 21:08 Dose: 75 mls/hr Documented by: Levetiracetam (Levetiracetam 250 Mg Tab) 250 mg PO Q12HR [facility] Last Admin: 03/24/20 20:05 Dose: 250 mg Documented by: Lorazepam (Lorazepam 0.5 Mg Tab) 0.25 mg PO BID PRN PRN Reason: Agitation or Acute Anxiety Mirtazapine (Mirtazapine 15 Mg Tab) 15 mg PO HS [facility] Last Admin: 03/24/20 20:05 Dose: 15 mg Documented by: Naloxone HCl (Naloxone 0.4 Mg/Ml 1 Ml Vial) 0.2 mg IV Q2M PRN PRN Reason: Opioid Reversal Objective - Vital Signs Vital signs: Vital Signs Temp 96.9 F L 03/24/20 08:00 Pulse 62 03/24/20 12:00 Resp 16 03/24/20 03:35 BP 142/88 03/24/20 08:00 Pulse Ox 98 03/24/20 08:00 Intake & Output 03/23/20 03/24/20 03/24/20 18:59 06:59 18:59 Intake Total 0 Output Total 0 Balance 0 0 Weight 67.5 kg 68.1 kg Intake: Oral 0 Output: Urine 0 Other: Voiding Method Toilet Toilet Diaper Diaper # Voids 2 2 2 - Exam -GENERAL: The patient is resting with her eyes close , no acute distress HEENT: Pupils are round and equally reacting to light. EOMI. No scleral icterus. No conjunctival pallor. Normocephalic, atraumatic. No pharyngeal erythema. No thyromegaly. CARDIOVASCULAR: S1 and S2 present. No murmurs, rubs, or gallops. PULMONARY: Chest is clear to auscultation, no wheezing or crackles. ABDOMEN: Soft, nontender, nondistended, normoactive bowel sounds. No palpable organomegaly. MUSCULOSKELETAL: No joint swelling or deformity. EXTREMITIES: No cyanosis, clubbing, or pedal edema. NEUROLOGICAL: Gross neurological exam is limited by patient mental status SKIN: No rashes. no petechiae. - Labs CBC & Chem 7: 03/24/20 05:57 03/24/20 05:57 Labs: Abnormal Lab Results - Last 24 Hours (Table) 03/24/20 03/24/20 Range/Units 05:57 05:57 WBC 2.7 L (3.8-10.6) k/uL Plt Count 103 L (150-450) k/uL Lymphocytes # 0.7 L (1.0-4.8) k/uL Sodium 135 L (137-145) mmol/L Chloride 108 H (98-107) mmol/L Carbon Dioxide 21 L (22-30) mmol/L BUN 27 H (7-17) mg/dL Creatinine 1.08 H (0.52-1.04) mg/dL Glucose 65 L (74-99) mg/dL Magnesium 1.4 L (1.6-2.3) mg/dL Total Bilirubin 1.5 H (0.2-1.3) mg/dL Unconjugated Bilirubin 1.2 H (0.0-1.1) mg/dL Delta Bilirubin 0.3 H (0.0-0.2) mg/dL Total Protein 5.5 L (6.3-8.2) g/dL Albumin 2.8 L (3.5-5.0) g/dL Assessment and Plan Assessment: ASSESSMENT -Progressive Encephlopathy - with ? seizure, neurologist recommendation a small dose of Keppra and monitor patient, patient is high-risk for seizure due to her meningioma -Cerebral meningioma -Possible Atrial fibrillation, noncompliant with Xarelto for 2-3 years. Patient was started on aspirin. -RENE on CKD - creatinine trending down -Chronic kidney disease stge 3 -Progressive dementia -History of atrial fibrillation and patient is noncompliant with Xarelto -Osteoarthritis Plan: continue with Keppra. Continue with normal saline. Continue with aspirin as per neurologist recommendation. Monitor mental status. Continue with symptomatic treatment. Resume home medication. Monitor lytes and vitals. Further recommendations depending on the progress of the patient. DVT prophylaxis: Subcutaneous heparin. GI Prophylaxis: Pepcid. Prognosis is guarded . CODE STATUS - DNR as per discussion with her at bed side today. Treatment plan discussed with at bedside in detail.
[2020-03-25] MEDS: LORazepam 0.5 MG TAB PO PRN (02:44)
[2020-03-25 06:15] LABS: Basophils % (A) 1 %; Eosinophils # (A) 0.1 k/uL (0-0.7); Eosinophils % (A) 3 %; HCT 40.8 % (34.0-46.0); HGB 13.4 gm/dL (11.4-16.0); Lymphocytes # (A) 0.7 k/uL (1.0-4.8); Lymphocytes % (A) 27 %; MCH 31.2 pg (25.0-35.0); MCHC 32.9 g/dL (31.0-37.0); MCV 94.7 fL (80.0-100.0); Mean Platelet Volume 11.1; Monocytes # (A) 0.2 k/uL (0-1.0); Monocytes % (A) 7 %; Neutrophils # (A) 1.7 k/uL (1.3-7.7); Neutrophils % (A) 60 %; Platelet Count 101 k/uL (150-450); RBC 4.31 m/uL (3.80-5.40); RDW 14.4 % (11.5-15.5); WBC 2.8 k/uL (3.8-10.6)
[2020-03-25 06:17] LABS: Albumin 2.9 g/dL (3.5-5.0); Bilirubin, Delta 0.4 mg/dL (0.0-0.2); Bilirubin,Unconjugated 0.8 mg/dL (0.0-1.1); Calcium 9.1 mg/dL (8.4-10.2); Magnesium 2.2 mg/dL (1.6-2.3); Total Bilirubin 1.2 mg/dL (0.2-1.3); Total Protein 5.7 g/dL (6.3-8.2)
[2020-03-25] MEDS: FAMOTIDINE 20 MG TAB PO SCH (09:23)
[2020-03-25] MEDS: ASPIRIN 325 MG TAB PO SCH (09:23)
[2020-03-25] MEDS: levETIRAcetam 250 MG TAB PO SCH ×2 (09:23→20:02)
[2020-03-25] MEDS: SODIUM CHLORIDE 0.9% 1,000 ML IV SCH (09:23)
[2020-03-25] MEDS: HEPARIN SODIUM,PORCINE 5,000 UNIT/ML 1 ML VIAL SQ SCH ×2 (09:24→20:07)
--- NOTE | 2020-03-25 16:17 | P.PN ---
Subjective Progress Note Date: 03/25/20 Principal diagnosis: Encephalopathy Ms. Coats is a 79-year-old female with a past medical history of progressive dementia, atrial fibrillation noncompliant with Xarelto for many years, status post pacemaker, osteoarthritis, CKD, meningioma of the brain brought in by her and son for progressive worsening of her mentation. As per discussion with her at bedside, he mentions that progressively for the past 4 to 5 weeks she has declined in her mentation, also had decreased p.o. intake. She did not have any specific complaints but gradually will worsen over the course of time. Eventually they decided to bring her to the hospital. At the time of admission patient had CT scan of the brain that was showing no acute intracranial hemorrhage or midline shift, mild diffuse age-related cerebral atrophy and moderate to advanced chronic small vessel ischemic changes. On her labs she had mildly elevated d-dimer for which pulmonary perfusion scan was done that was consistent with low probability of PE. Neurology consult was also obtained and the patient had work-up done with carotid artery Doppler study that was showing no definitive evidence of hemodynamically significant stenosis and she also had EEG done showing generalized cerebral dysfunction due to diffuse structural brain abnormality. Eventually patient was started on Keppra. On 03/24/20- Currently the patient is lying in her bed sleeping. Her mentions that she was very agitated earlier this afternoon and was throwing things and so he did not want me to disturb her. On reviewing the vitals patient's temperature is 97.5, heart rate around 70, rest rate 18, blood pressu re 143/77, saturating at 99% on room air. Patient's labs from this morning showed white count of 2.7, hemoglobin 12.4, platelets 103. Sodium 131, potassium 3.9, chloride 108, bicarb 21, BUN 27, creatinine 1.08. On 03/25/2020- patient is comfortably lying in bed appears to be in acute distress. Patient's son at the bedside and feeding had a sandwich. Patient's son mentions that if her sandwich is made into smaller pieces his mother could eat it. Review of systems could not be done as the patient is confused. Patient has been trying to find for things in her bed constantly moving her blankets. As per discussion with her son, he mentions that she would let them know when she has to pee and poop. On reviewing her vitals this morning afebrile for the past 24 hours, heart rate around 70s, blood pressure 1 37 x 84, saturating at 99% on room air. 100 reviewing her labs her white count of 2.8, hemoglobin 13.4, platelets 101. Sodium 138, potassium 4, chloride 108, bicarb 2 4, BUN 25, creatinine 1.07. Albumin of 2.9. Active Medications Aspirin (Aspirin 325 Mg Tab) 325 mg PO DAILY [facility] Last Admin: 03/25/20 09:23 Dose: 325 mg Documented by: Famotidine (Famotidine 20 Mg Tab) 20 mg PO DAILY [facility] Last Admin: 03/25/20 09:23 Dose: 20 mg Documented by: Heparin Sodium (Porcine) (Heparin Sodium,Porcine 5,000 Unit/Ml 1 Ml Vial) 5,000 unit SQ Q12HR [facility] Last Admin: 03/25/20 09:24 Dose: 5,000 unit Documented by: Sodium Chloride (Saline 0.9%) 1,000 mls @ 75 mls/hr IV .[id number] [facility] Last Admin: 03/25/20 09:23 Dose: 75 mls/hr Documented by: Levetiracetam (Levetiracetam 250 Mg Tab) 250 mg PO Q12HR [facility] Last Admin: 03/25/20 09:23 Dose: 250 mg Documented by: Lorazepam (Lorazepam 0.5 Mg Tab) 0.25 mg PO BID PRN PRN Reason: Agitation or Acute Anxiety Last Admin: 03/25/20 02:44 Dose: 0.25 mg Documented by: Mirtazapine (Mirtazapine 15 Mg Tab) 15 mg PO HS [facility] Last Admin: 03/24/20 20:05 Dose: 15 mg Documented by: Naloxone HCl (Naloxone 0.4 Mg/Ml 1 Ml Vial) 0.2 mg IV Q2M PRN PRN Reason: Opioid Reversal Objective - Vital Signs Vital signs: Vital Signs Temp 96.2 F L 03/25/20 08:00 Pulse 60 03/25/20 12:00 Resp 16 03/25/20 07:00 BP 137/84 03/25/20 12:00 Pulse Ox 99 03/25/20 12:00 Intake & Output 03/24/20 03/25/20 03/25/20 18:59 06:59 18:59 Weight 70.5 kg Other: Voiding Method Toilet Diaper # Voids 2 2 2 - Exam -GENERAL: Appears to be no acute distress. Has been trying to find for something under that she eats constantly. HEENT: Pupils are round and equally reacting to light. EOMI. No scleral icterus. No conjunctival pallor. Normocephalic, atraumatic. No pharyngeal erythema. No thyromegaly. CARDIOVASCULAR: S1 and S2 present. No murmurs, rubs, or gallops. PULMONARY: Chest is clear to auscultation, no wheezing or crackles. ABDOMEN: Soft, nontender, nondistended, normoactive bowel sounds. No palpable organomegaly. MUSCULOSKELETAL: No joint swelling or deformity. EXTREMITIES: No cyanosis, clubbing, or pedal edema. NEUROLOGICAL: Gross neurological exam is limited by patient mental status. No facial droop. SKIN: No rashes. no petechiae. - Labs CBC & Chem 7: 03/25/20 05:29 03/25/20 05:29 Labs: Abnormal Lab Results - Last 24 Hours (Table) 03/25/20 03/25/20 03/25/20 Range/Units 00:12 05:29 05:29 WBC 2.8 L (3.8-10.6) k/uL Plt Count 101 L (150-450) k/uL Lymphocytes # 0.7 L (1.0-4.8) k/uL Chloride 108 H (98-107) mmol/L BUN 25 H (7-17) mg/dL Creatinine 1.07 H (0.52-1.04) mg/dL Magnesium 2.6 H (1.6-2.3) mg/dL Delta Bilirubin 0.4 H (0.0-0.2) mg/dL Total Protein 5.7 L (6.3-8.2) g/dL Albumin 2.9 L (3.5-5.0) g/dL Assessment and Plan Assessment: ASSESSMENT -Progressive Encephlopathy - with ? seizure, neurologist recommendation a small dose of Keppra and monitor patient, patient is high-risk for seizure due to her meningioma -Cerebral meningioma -Possible Atrial fibrillation, noncompliant with Xarelto for 2-3 years. Patient was started on aspirin. -RENE on CKD - creatinine trending down -Chronic kidney disease stge 3 -Progressive dementia -History of atrial fibrillation and patient is noncompliant with Xarelto -Osteoarthritis Plan: continue with Keppra. Continue with normal saline. Continue with aspirin as per neurologist recommendation. Monitor mental status. Continue with symptomatic treatment. Resume home medication. Monitor lytes and vitals. Further recommendations depending on the progress of the patient. DVT prophylaxis: Subcutaneous heparin. GI Prophylaxis: Pepcid. Prognosis is guarded . CODE STATUS - DNR as per discussion with her at bed side yesterday. Had a very lengthy discussion with her son and right sides, discussed with him the results of the computed tomography scan, carotid artery Doppler and EEG reports. Discussed with him that she would require 24 x 7 care. track repair worker and director case management for hospital bed equipment and other durable medical equipment that is required prior to her discharge. Anticipate discharge in the next 24-48 hours. Time with Patient: Greater than 30
[2020-03-25] MEDS: MIRTAZAPINE 15 MG TAB PO SCH (20:02)
[2020-03-26] MEDS: SODIUM CHLORIDE 0.9% 1,000 ML IV SCH ×2 (02:54→12:44)
[2020-03-26] MEDS: FAMOTIDINE 20 MG TAB PO SCH (09:30)
[2020-03-26] MEDS: levETIRAcetam 250 MG TAB PO SCH (09:30)
[2020-03-26] MEDS: ASPIRIN 325 MG TAB PO SCH (09:30)
[2020-03-26] MEDS: HEPARIN SODIUM,PORCINE 5,000 UNIT/ML 1 ML VIAL SQ SCH (09:31)
[2020-03-26 11:59] VITALS: BP 132/91; PULSE 60; RESP 17; TEMP 97.9
--- NOTE | 2020-03-26 22:26 | P.PN ---
Subjective Progress Note Date: 03/26/20 Patient was seen for a follow-up. Patient's son was also present in the room. Patient's son mentioned that prior to arrival to the hospital, he was helping her to the bathroom, when he noticed that she started going down. He called the dad to put her walker chair under so she would not fall. Patient was unresponsive. Patient's son noticed that her right face was drooping, tongue was hanging and she was drooling. She started heaving, like she will throw up but but she never did. He did not notice any obvious convulsive activity. He felt she was having a stroke. She was brought to the hospital by ambulance. Patient was placed on low-dose Keppra 250 mg twice a day empirically for seizure prophylaxis, as patient has 1.8 cm meningioma. Patient was very lethargic, but now seems to be waking up. Objective - Vital Signs Vital signs: Vital Signs Temp 97.9 F 03/26/20 11:58 Pulse 60 03/26/20 11:58 Resp 17 03/26/20 11:58 BP 132/91 03/26/20 11:58 Pulse Ox 99 03/26/20 11:58 Intake & Output 03/26/20 03/26/20 03/27/20 06:59 18:59 06:59 Intake Total 1650 Balance 1650 Weight 68.5 kg Intake: Intake, IV Titration 700 Amount Sodium Chloride 0.9% 1, 700 000 ml @ 75 mls/hr IV . [id number] [facility] Rx#:[id number] Oral 950 Other: Voiding Method Toilet Toilet Diaper Diaper # Voids 3 2 - Exam Patient was very lethargic, but now seems to be waking up. She mumbles, which is her baseline. She makes eye contact. Pupils are round and reacting. Visual deal could not be tested reliably because of her mentation. Face is symmetric. Her strength is normal in the arms and legs. Tone is equal. No obvious seizure activity noted. - Labs CBC & Chem 7: 03/25/20 05:29 03/25/20 05:29 Assessment and Plan Assessment: * Syncopal episode with unresponsiveness, unclear etiology. Rule out seizure. Rule out TIA. * Advanced dementia * History of cerebral meningioma 1.8 cm over the right parietal convexity. * Atrial fibrillation, noncompliant with medication. Plan: * Patient underwent EEG , which did not reveal any epileptiform activity. It was a limited study and only 10 minutes of recording was accomplished because of patient noncooperation. A lot of movement artifact was also seen. Suggest repeating study, if patient becomes more cooperative. As patient has a fairly large cerebral meningioma, patient is high risk for seizures. We'll empirically place on low-dose Keppra 250 mg twice a day for seizure prophylaxis given this current spell and presence of meningioma. * Patient has atrial fibrillation, patient has been on Xarelto but she is noncompliant does not take medication. I spoke to patient's son, who states that Xarelto is very expensive, and they are not able to afford it. Would defer anticoagulation to IM. Patient does have a color printer operator Dr. Spaulding. Patient's son was recommended to follow with the color printer operator to consider alternate treatment, which is affordable.. Patient has been placed on aspirin regimen. * Carotid Doppler was performed, which showed no significant stenosis. * B12 is normal 485, TSH normal 1.83. * Patient being discharged home.
--- NOTE | 2020-03-27 19:04 | P.DS ---
Providers Date of admission: 03/22/20 15:57 Expected date of discharge: 03/26/20 Attending physician: Rusty Littlejohn Consults: 03/22/20 17:21 Consult Physician Urgent Consulting Provider: Clement Erazo Consult Reason/Comments: ams Do you want consulting provider notified?: Yes Primary care physician: Darrius Woodard MD Hospital Course: Hospital course Ms. Coats is a 79-year-old female with a past medical history of progressive dementia, atrial fibrillation noncompliant with Xarelto for many years, status post pacemaker, osteoarthritis, CKD, meningioma of the brain brought in by her and son for progressive worsening of her mentation. As per discussion with her at bedside, he mentions that progressively for the past 4 to 5 weeks she has declined in her mentation, also had decreased p.o. intake. She did not have any specific complaints but gradually will worsen over the course of time. Eventually they decided to bring her to the hospital. At the time of admission patient had CT scan of the brain that was showing no acute intracranial hemorrhage or midline shift, mild diffuse age-related cerebral atrophy and moderate to advanced chronic small vessel ischemic changes. On her labs she had mildly elevated d-dimer for which pulmonary perfusion scan was done that was consistent with low probability of PE. Neurology consult was also obt ained and the patient had work-up done with carotid artery Doppler study that was showing no definitive evidence of hemodynamically significant stenosis and she also had EEG done showing generalized cerebral dysfunction due to diffuse structural brain abnormality. Eventually patient was started on Keppra. Dr. Cedeno spoke to the and patient was made DO NOT RESUSCITATE. Today-spoke to the nurse. Patient did seem to eat well.-With Family members not so much of the nursing staff. Otherwise patient been comfortable. Had a lengthy talk with the hospital social worker. Also communicated with [facility]. Family then decided to make the patient hospice. Which is appropriate. Discussion and discharge planning more than 35 minutes Consultation: Dr. Castillo from neurology On examination: VITAL SIGNS: 97.9, 16, 17, 132/91, 99% room air GENERAL APPEARANCE: Laying in bed, comfortable HEENT: Normal external appearance of nose and ear. Oral cavity normal EYES: Pupils equal. Conjunctiva normal. NECK: JVD not raised. Mass not palpable. RESPIRATORY: Respiratory effort normal. Lungs clear to auscultation. CARDIOVASCULAR: First and second sounds normal. No edema. ABDOMEN: Soft. Liver and spleen not palpable. No tenderness. No mass palpable. PSYCHIATRY: Answering questions INVESTIGATIONS, reviewed in the clinical context: White count 2.8 hemoglobin 13.4 platelets 101 potassium 4 bun 25 creatinine 1.07 Previous testing: Bun 39 creatinine 1.55 . EEG-background slowing of moderate to severe degree. Carotid Doppler-no significant stenosis Pulmonary perfusion scan-low probability for PE Computed tomography scan of brain-chronic changes EKG tracing-ventricular paced rhythm Assessment: -Senile degeneration of the brain leading to advanced dementia and cognitive impairment-diagnosis for admission to hospice -Cerebral meningioma -Persistent atrial fibrillation noncompliant with Xarelto for 2 or 3 years -Acute kidney injury likely prerenal from decreased oral intake -Chronic kidney disease stage III likely nephrosclerosis -Primary osteoarthritis -DO NOT RESUSCITATE Disposition: Home with hospice Patient Condition at Discharge: Poor Plan - Discharge Summary Discharge Rx Participant: No New Discharge Prescriptions: New Aspirin 81 mg PO DAILY #30 chewable levETIRAcetam [Keppra] 250 mg PO Q12HR #60 tab Famotidine [Pepcid] 20 mg PO DAILY #30 tab Continue LORazepam [Ativan] 0.25 mg PO BID PRN #6 tab PRN Reason: Agitation Or Acute Anxiety Mirtazapine 15 mg PO HS Discharge Medication List LORazepam [Ativan] 0.25 mg PO BID PRN #6 tab 02/04/20 [Rx] Mirtazapine 15 mg PO HS 03/22/20 [History] Aspirin 81 mg PO DAILY #30 chewable 03/26/20 [Rx] Famotidine [Pepcid] 20 mg PO DAILY #30 tab 03/26/20 [Rx] levETIRAcetam [Keppra] 250 mg PO Q12HR #60 tab 03/26/20 [Rx] Follow up Appointment(s)/Referral(s): Darrius Woodard MD [Primary Care Provider] - 03/27/20 (office to call you with time) [facility] Vis[facility] Nurse, [NON-STAFF] - 1-2 Days ([facility] for Hospice needs) Patient Instructions/Handouts: Famotidine (By mouth), Aspirin (By mouth), Levetiracetam (By mouth), Hospice (DC) Discharge Disposition: HOME WITH HOSPICE
== END 2020-03-26 20:00 | disposition hospice, home (50) | DRG 57 ==
LOC: EC 13:55 → 3SCARD 15:57 → 6NMEDSUR 03-25 18:03
PROVIDERS: ADMIT Hospitalist; ATTEND Hospitalist
DX: G31.1 Senile degeneration of brain, not elsewhere classified (principal); E87.2 Acidosis; N17.9 Acute kidney failure, unspecified; N39.0 Urinary tract infection, site not specified; I48.19 Other persistent atrial fibrillation; G93.40 Encephalopathy, unspecified; F02.80 Dementia in other diseases classified elsewhere, unspecified severity, without behavioral disturbance, psychotic disturbance, mood disturbance, and anxiety; D32.0 Benign neoplasm of cerebral meninges; E86.0 Dehydration; F32.9 Major depressive disorder, single episode, unspecified; F41.9 Anxiety disorder, unspecified; R45.1 Restlessness and agitation; N18.3 Chronic kidney disease, stage 3 (moderate); M19.91 Primary osteoarthritis, unspecified site; I49.3 Ventricular premature depolarization; I49.1 Atrial premature depolarization; R29.810 Facial weakness; Z66 Do not resuscitate; Z51.5 Encounter for palliative care; I12.9 Hypertensive chronic kidney disease with stage 1 through stage 4 chronic kidney disease, or unspecified chronic kidney disease; T45.516A Underdosing of anticoagulants, initial encounter; Z91.128 Patient's intentional underdosing of medication regimen for other reason; R40.2362 Coma scale, best motor response, obeys commands, at arrival to emergency department; R40.2142 Coma scale, eyes open, spontaneous, at arrival to emergency department; R40.2242 Coma scale, best verbal response, confused conversation, at arrival to emergency department; R40.2354 Coma scale, best motor response, localizes pain, 24 hours or more after hospital admission; R40.2134 Coma scale, eyes open, to sound, 24 hours or more after hospital admission; R40.2244 Coma scale, best verbal response, confused conversation, 24 hours or more after hospital admission; Z79.01 Long term (current) use of anticoagulants; Z79.82 Long term (current) use of aspirin; Z90.710 Acquired absence of both cervix and uterus; Z95.0 Presence of cardiac pacemaker; G47.30 Sleep apnea, unspecified; Z99.89 Dependence on other enabling machines and devices; G83.21 Monoplegia of upper limb affecting right dominant side; Z88.5 Allergy status to narcotic agent; R79.1 Abnormal coagulation profile; Z90.49 Acquired absence of other specified parts of digestive tract; M19.90 Unspecified osteoarthritis, unspecified site; Z79.899 Other long term (current) drug therapy; Z98.51 Tubal ligation status
CPT/HCPCS: 36415; 70450; 71046; 78580; 80048; 80053; 80076; 81003; 82550; 82607; 83036; 83605; 83735; 84443; 84484; 85025; 85379; 85610; 85730; 93005; 93880; 95816; 96360; 96361; 99291